=== PATIENT | male | born 1960 | race Caucasian/White ===

== ENCOUNTER 2016-09-22 21:49 | Inpatient (IN) | payer BC ==
[2016-09-22] MEDS ORDERED: Heparin for STEMI(*) 5,000 UNITS/ML 1 ML VIAL IV ONE (21:53)
[2016-09-22] MEDS ORDERED: Ticagrelor* 90 MG TAB PO ONE (22:00)
[2016-09-22] MEDS ORDERED: nitroGLYCERIN DRIP* 25,000 MCG in PREMIX* 0 ML IV ONE (22:02)
[2016-09-22] MEDS ORDERED: nitroGLYCERIN DRIP* 250 ML ONE ×2 (22:04→22:06)
[2016-09-22] MEDS ORDERED: Midazolam* 1 MG/ML 5 ML VIAL (5 MG) ONE (22:05)
[2016-09-22] MEDS ORDERED: fentaNYL* 50 MCG/ML 2 ML VIAL (100 MCG VIAL) ONE (22:05)
[2016-09-22 22:06] LABS: Hematocrit 45 % (42-52); Hemoglobin 15.1 g/dl (14.0-18.0); Mean Corpuscular HGB Conc 34 g/dl (31-36); Mean Corpuscular Hemoglobin 31 pg (27-31); Mean Corpuscular Volume 93 fL (80-94); Mean Platelet Volume 8 um3 (7.4-10.4); Red Blood Count 4.83 10^6/ul (4.0-5.4); Red Cell Distribution Width 13 % (10.5-15)
[2016-09-22] MEDS ORDERED: Lidocaine 1% INJ* 10 MG/ML 30 ML SDV ONE (22:06)
[2016-09-22] MEDS ORDERED: Iohexol 350 (CONTRAST) 200 ML MDV IV ONE (22:06)
[2016-09-22] MEDS ORDERED: Heparin(*) 1000 UNIT/ML 10 ML VIAL CATH LAB IV ONE (22:06)
[2016-09-22] MEDS ORDERED: VERAPAMIL 2.5 MG/ML 4 ML VIAL ONE (22:06)
[2016-09-22] MEDS ORDERED: Heparin 2 UNITS/ML IVPREMIX* 3,000 ML IV ONE (22:06)
[2016-09-22 22:20] LABS: Albumin 4.3 g/dL (3.2-5.2); BUN/Creatinine Ratio 8.3 (8-20); Calcium 9.2 mg/dL (8.6-10.3); EGFR African American 72.2 (>60); EGFR Non-African American 56.1 (>60); Globulin 3.7 g/dL (2-4); Potassium 3.8 mmol/L (3.5-5.0); Total Bilirubin 0.6 mg/dL (0.2-1.0)
[2016-09-22] MEDS ORDERED: Iodixanol* (CONTRAST) 320 MG/ML 100 ML SDV ONE ×2 (22:25→23:14)
--- NOTE | 2016-09-22 22:25 | RAD ---
INDICATION: Chest pain COMPARISON: September 02, 2016 TECHNIQUE: An AP portable view obtained at 2200 hours is submitted. FINDINGS: Bones/Soft Tissues: There are no acute bony findings. Cardiomediastinal: The cardiomediastinal silhouette is normal. Lungs: There are no infiltrates. Pleura: There are no pleural effusions. Other: None IMPRESSION: NO ACTIVE DISEASE.
[2016-09-22 22:31] LABS: Troponin I 2.51 ng/mL (<0.04)
[2016-09-22] MEDS ORDERED: NitroPRUSSide* 25 MG/ML 2 ML VIAL IVPB ONE (23:19)
[2016-09-22] MEDS ORDERED: Eptifibatide IV (Load dose)(*) 2 MG/ML 10 ml VIAL ONE (23:22)
[2016-09-22] MEDS ORDERED: Norepinephrine 16MCG/ML IVPRE* 4,000 MCG/250 ML BAG IV ONE (23:26)
[2016-09-23] MEDS ORDERED: Nitroglycerin TAB 0.4 MG* 0.4 MG TAB SL PRN (00:02)
[2016-09-23] MEDS ORDERED: Zolpidem TAB* 5 MG PO PRN (00:06)
[2016-09-23] MEDS ORDERED: NS 0.9% 1000 ML* 1,000 ML IV SCH (00:15)
[2016-09-23] MEDS: Captopril TAB* 12.5 MG PO SCH ×3 (02:23→14:56)
[2016-09-23] MEDS: Metoprolol Tartrate TAB* 25 MG PO SCH ×2 (02:24→08:15)
[2016-09-23 02:25] LABS: Troponin I > 85.00 ng/mL (<0.04)
[2016-09-23 02:36] LABS: Cholesterol 139 mg/dL; HDL Cholesterol 48.7 mg/dL; LDL Cholesterol 83 mg/dL; Triglycerides 37 mg/dL
[2016-09-23 02:57] LABS: Creatine Kinase 3409 U/L (10-223)
[2016-09-23 05:59] LABS: Hematocrit 40 % (42-52); Hemoglobin 13.6 g/dl (14.0-18.0); Mean Corpuscular HGB Conc 34 g/dl (31-36); Mean Corpuscular Hemoglobin 31 pg (27-31); Mean Corpuscular Volume 92 fL (80-94); Mean Platelet Volume 8 um3 (7.4-10.4); Red Blood Count 4.35 10^6/ul (4.0-5.4); Red Cell Distribution Width 13 % (10.5-15); White Blood Count 12.7 10^3/ul (3.5-10.8)
[2016-09-23 06:10] LABS: Anion Gap 7 mmol/L (2-11); BUN/Creatinine Ratio 9.7 (8-20); Blood Urea Nitrogen 11 mg/dL (6-24); CO2 Carbon Dioxide 25 mmol/L (22-32); Calcium 8.8 mg/dL (8.6-10.3); Chloride 103 mmol/L (101-111); EGFR African American 86.3 (>60); EGFR Non-African American 67.1 (>60); Glucose 134 mg/dL (70-100); Sodium 135 mmol/L (133-145)
[2016-09-23 06:14] LABS: Troponin I > 85.00 ng/mL (<0.04)
[2016-09-23 06:26] LABS: Creatine Kinase 4860 U/L (10-223)
[2016-09-23] MEDS: Acetaminophen TAB* 325 MG PO PRN ×2 (08:15→21:20)
[2016-09-23] MEDS: Nicotine PATCH 14 MG/24 HR* PATCH TRANSDERM SCH (08:33)
[2016-09-23] MEDS ORDERED: Ticagrelor* 90 MG TAB PO SCH (09:00)
[2016-09-23] MEDS ORDERED: Aspirin Low Dose CHEW TAB* 81 MG PO SCH (09:00)
[2016-09-23] MEDS ORDERED: Omeprazole CAP* 20 MG PO SCH (10:00)
[2016-09-23] MEDS ORDERED: fentaNYL* 50 MCG/ML 2 ML VIAL (100 MCG VIAL) ONE (10:44)
[2016-09-23] MEDS ORDERED: Ibuprofen TAB* 600 MG ONE (10:45)
[2016-09-23] MEDS ORDERED: Ibuprofen TAB* 600 MG PO PRN (10:48)
[2016-09-23] MEDS ORDERED: fentaNYL* 50 MCG/ML 2 ML VIAL (100 MCG VIAL) IV SLOW PU PRN (10:49)
[2016-09-23] MEDS ORDERED: Ibuprofen TAB* 600 MG PO ONE (10:50)
--- NOTE | 2016-09-23 11:03 | ECHO ---
Patient: TRISTIN VAUGHAN Rec#: [id number] : 1960 Date: 09/23/2016 Age: 55y Height: 162.56 cm / 64.0 in Weight: 68.95 kg / 152.0 lbs Sex: M BSA: 1.74 Room#: [facility]9 Admit Date#: 09/22/2016 Type: Inpatient Referring: Charbel Clay MD Reading: Burak Rodriguez MD Technology Solutions Architect: Odette Hanna Technology Solutions Architect: Candice Jenkins RDCS CC: Pascual Stinson MD Transthoracic Echocardiogram Indication: S/P PCI BP: 135/86 HR: 63 Rhythm: NSR Findings History: STEMI 09/22/16, PCI X2 LAD, Hep C, HTN. Technical Comments: The study quality is fair. Completed at 1035. Left Ventricle: The left ventricular chamber size is normal. Septal wall hypertrophy is observed. There is evidence of an ischemic cardiomyopathy. There are multiple regional wall motion abnormalities. There is moderately decreased left ventricular systolic function. The estimated ejection fraction is 30-35%. There is no consistent Doppler evidence of clinically significant diastolic dysfunction. The mid anteroseptal, mid inferior, mid inferoseptal, apical anterior, and apical lateral wall segments are hypokinetic (score 2). The apical septal, and apical inferior wall segments are akinetic (score 3). Overall wallmotion score index is 2.29 Left Atrium: The left atrial chamber size is normal. Right Ventricle: The right ventricular cavity size is normal. The right ventricular global systolic function is normal. Right Atrium: The right atrial cavity size is normal. Aortic Valve: The aortic valve is trileaflet. There is moderate thickening of the left coronary cusp. There is a trace of aortic regurgitation. There is no evidence of aortic stenosis. Mitral Valve: The mitral valve leaflets are moderately thickened. There is mild mitral regurgitation. There is no evidence of mitral stenosis. Tricuspid Valve: The tricuspid valve leaflets are normal. There is mild to moderate tricuspid regurgitation. There is evidence of moderate pulmonary hypertension. There is no tricuspid stenosis. Pulmonic Valve: The pulmonic valve appears normal. There is no evidence of pulmonic regurgitation. There is no pulmonic stenosis. Pericardium: There is no significant pericardial effusion. Aorta: There is no dilatation of the ascending aorta. There is no dilatation of the aortic arch. There is no dilation of the aortic root. Pulmonary Artery: The main pulmonary artery appears normal. Venous: The inferior vena cava appears normal in size. There is an approximate 50% respiratory change in the inferior vena cava dimension. Conclusions There is moderately decreased left ventricular systolic function. The estimated ejection fraction is 30-35%. There are multiple regional wall motion abnormalities. The right ventricular global systolic function is normal. There is moderate thickening of the left coronary cusp. There is a trace of aortic regurgitation. There is mild mitral regurgitation. There is mild to moderate tricuspid regurgitation. There is evidence of moderate pulmonary hypertension. There is no significant pericardial effusion. Measurements Name Value Normal Range RVIDd (AP) 2D 2.5 cm (0.9 - 2.6) RVDdMajor (2D) 2.7 cm (2.2 - 4.4) RAd ISD 4CH 3.8 cm (3.4 - 4.9) RA (A4C)W 3 cm (2.9 - 4.6) IVSd (2D) 1.1 cm (0.6 - 1) LVPWd (2D) 0.8 cm (0.6 - 1) LVIDd (2D) 4.1 cm (3.6 - 5.4) LVIDs (2D) 2.9 cm - LV FS (2D) 29 % (25 - 45) Aortic Annulus 1.9 cm (1.4 - 2.6) Ao root diameter (2D) 2.8 cm (2.1 - 3.5) Ascending Ao 2.8 cm (2.1 - 3.4) Aortic arch 2.1 cm (1.8 - 3.4) Descending Ao 0.8 cm - LA dimension (AP) 2D 3 cm (2.3 - 3.8) LAd ISD 4CH 4.7 cm (2.9 - 5.3) LA ISD 4CH W 3.9 cm (2.5 - 4.5) Name Value Normal Range LA ESV SP 4CH (A/L) 38 ml - LA ESV SP 2CH (A/L) 31 ml - LA ESV BP (A/L) 36 ml - LA ESV BP (A/L) index 21.09 ml/m2 - LA ESV SP 4CH (MOD) 35 ml - LA ESV SP 2CH (MOD) 32 ml - Name Value Normal Range MV E-wave Vmax 0.8 m/sec - MV deceleration time 228 msec - MV A-wave Vmax 0.4 m/sec - MV E:A ratio 1.9 ratio - LV septal e' Vmax 0.07 m/sec - LV lateral e' Vmax 0.09 m/sec - LV E:e' septal ratio 11.43 ratio - LV E:e' lateral ratio 8.89 ratio - Name Value Normal Range AV Vmax 1.5 m/sec - AV VTI 31 cm - AV peak gradient 9.42 mmHg - AV mean gradient 5.79 mmHg - LVOT Vmax 0.9 m/sec - LVOT VTI 18.8 cm - LVOT peak gradient 3.5 mmHg - LVOT mean gradient 2.1 mmHg - MONAE Vmax 0.81 m/sec - Name Value Normal Range TR Vmax 3.3 m/sec - TR peak gradient 45 mmHg - RAP 8 mmHg - RVSP 53 mmHg - IVC diameter 2.1 cm - Name Value Normal Range PV Vmax 0.7 m/sec - PV peak gradient 1.95 mmHg - Wallmotion BAS Not Seen BA Not Seen BAL Not Seen NITIN Not Seen BI Not Seen BIS Not Seen MAS Hypokinetic MA Not Seen MAL Not Seen MIL Not Seen ND Hypokinetic MIS Hypokinetic Akinetic AA Hypokinetic AL Hypokinetic AI Akinetic APEX Akinetic
[2016-09-23] MEDS: CMCS:Prasugrel (NF) 10 MG PO SCH (11:34)
[2016-09-23 12:59] LABS: Troponin I > 85.00 ng/mL (<0.04)
[2016-09-23 13:08] LABS: Creatine Kinase 3689 U/L (10-223)
[2016-09-23] MEDS ORDERED: Captopril TAB* 12.5 MG PO SCH ×2 (14:46→15:00)
[2016-09-23] MEDS: ALPRAZolam TAB* 0.5 MG PO PRN (15:38)
[2016-09-23] MEDS ORDERED: Albuterol HFA INHALER* 8 gm MDI INH PRN (16:06)
[2016-09-23] MEDS ORDERED: Heparin DRIP 25,000 UNITS(*) 0 UNITS/0 ML BAG ONE (16:55)
[2016-09-23] MEDS: Gabapentin CAP(*) 400 MG PO SCH ×2 (16:55→21:19)
[2016-09-23] MEDS: Morphine INJ* 4 MG/ML 1 ML SYRINGE IV PRN ×2 (16:55→21:20)
[2016-09-23] MEDS ORDERED: Atorvastatin* 80 MG TAB PO SCH (17:00)
[2016-09-23] MEDS ORDERED: Metoprolol Tartrate TAB* 50 mg ONE (17:03)
[2016-09-23] MEDS ORDERED: CMCS Prasugrel (NF) 10 MG PO ONE (17:21)
[2016-09-23] MEDS: Metoprolol Tartrate TAB* 50 mg PO SCH (17:32)
--- NOTE | 2016-09-23 17:56 | HP ---
HISTORY AND PHYSICAL: DATE OF ADMISSION: 09/22/16 PRIMARY: Dr. Stinson HISTORY OF PRESENT ILLNESS: A 55-year-old male presenting to the ER with acute anterolateral ST elevation infarct. He denies any previous cardiac history. At around 1600 hours, he started to have episodes of precordial chest discomfort, which tended to wax and wane until it became more persistent. He presented to the ER, where EKG at [address] elevation infarct with already a QS pattern in V1 through V4 and significant ST elevation in I, aVL, as well as V1 through V5. He received aspirin, Brilinta, heparin, IV nitroglycerin, and was transferred to the collaborative physician for emergent catheterization after review of the procedure and risks. He has no history of heart failure symptoms, palpitations, or syncope. He does have a history of acid reflux. He is a smoker. ALLERGIES: None to medications. FAMILY HISTORY: Positive for premature coronary artery disease in his father. SOCIAL HISTORY: He is a heavy smoker. REVIEW OF SYSTEMS: General: No weight loss, no fever. He drives for [employer], has a sedentary job. SHIRT TRIMMER: No history of TIA or CVA. GI: No history of peptic ulcer disease or bleeding. He does not take aspirin regularly, but does tolerate it. Pulmonary: He denies any history of COPD. Circulatory: No history of claudication. Endocrine: No known history of diabetes or thyroid disease. Remainder of 18-point review negative. PHYSICAL EXAMINATION VITAL SIGNS: When seen in the ER, he was in moderate distress with chest pain, BP 139/92, heart rate in the 60s. No ectopy. HEENT: Unremarkable without xanthelasma, scleral injection, jaundice. Cranial nerves grossly intact. NECK: JVP normal. Carotids normal without bruits. LUNGS: Clear to percussion and auscultation. CARDIAC: [place] normal, RV not palpable, normal heart sounds, no audible gallop, murmur, or rub. ABDOMEN: Soft, nontender. No bruit. Aorta and liver not palpable. EXTREMITIES: Femoral pulses 2+. No bruits. Radial pulses 2+. Pedal pulses 2+ . No cyanosis, clubbing, or edema. SKIN: Somewhat cool, but not diaphoretic. DIAGNOSTIC STUDIES/LAB DATA: EKG as above. BMP revealed a creatinine of 1.32 with a baseline of 1 in 2010, normal potassium, random blood sugar of 143. His first CPK is already elevated at 508 with MB of 41.5, troponin of 2.51. LDL 79. Chest x-ray was read as showing no acute disease. IMPRESSION: 1. Acute anterolateral ST elevation infarct with relatively late presentation at approximately 6+ hours, although his symptoms have been somewhat stuttering. He already has a QS pattern. He still has ST elevation and chest pain, underwent emergent catheterization. 2. Tobacco use. We will encourage him not to resume smoking. 3. History of gastroesophageal reflux disease, we will treat medically. 4. Hyperglycemia, we will check hemoglobin A1c. CC: Dr. Stinson; Dr. Olmedo [id number]/[facility] #: [id number] [facility]
[2016-09-23] MEDS: Aspirin EC TAB* 325 MG PO SCH (17:58)
[2016-09-23] MEDS ORDERED: Captopril TAB* 12.5 MG PO ONE (18:45)
[2016-09-23] MEDS ORDERED: Captopril TAB* 12.5 MG ONE (18:46)
[2016-09-23] MEDS ORDERED: Metoprolol Tartrate TAB* 50 mg PO SCH (21:00)
[2016-09-23] MEDS ORDERED: Captopril TAB* 25 MG PO SCH (21:00)
[2016-09-23] MEDS ORDERED: Aspirin EC TAB* 325 MG PO SCH (21:00)
[2016-09-23] MEDS: Colchicine* 0.6 MG TAB PO SCH (21:19)
[2016-09-23] MEDS: Nicotine Patch Removal NOTE PATCH OFF SCH (21:20)
--- NOTE | 2016-09-23 22:39 | HP ---
HOSPITAL MEDICINE HISTORY AND PHYSICAL: DATE OF ADMISSION: 09/22/16 PRIMARY CARE PHYSICIAN: Dr. Stinson. ATTENDING PHYSICIAN: Dr. Clay. CONSULTING PHYSICIAN: Paulette Martinez MD * (dictation provided by Alcon Helms NP). CHIEF COMPLAINT: Chest pain with ST elevation NE. REASON FOR CONSULTATION: Anxiety and pain management. HISTORY OF PRESENT ILLNESS: Mr. Cortez is a 55-year-old male with past medical history of GERD who presented to the hospital on 09/22/16 with concern for chest pain, found to have ST elevation NE. Mr. Cortez was taken to the OR and 2 stents were placed to his LAD. I refer you to the documentation by Dr. Olmedo for complete details. The patient had a transthoracic echocardiogram today which showed a depressed ejection fraction with multiple wall motion abnormalities and an EF of 30% to 35%. There is no evidence of pericardial effusion. Through the day today, Mr. Cortez has been very uncomfortable. Dr. Clay suspects that the patient has pericarditis after his significant NE. Mr. Cortez is sitting forward in the bed and breathing with respiratory rate in the 30s. He is not tachycardic. His blood pressure is stable. The patient states he has discomfort in his chest when he takes in a deep breath and therefore, is breathing very shallowly. He states he feels anxious in regards to his physical health, in regards to not being able to smoke, and about the fear of losing his job. He states that at baseline he does not feel that he has not any issues with anxiety or depression. PAST MEDICAL HISTORY: GERD. MEDICATIONS: As outpatient: 1. Ranitidine 150 mg p.o. b.i.d. 2. Omeprazole 20 mg p.o. daily. 3. Gabapentin 400 mg p.o. t.i.d. 4. Currently, the patient is on Tylenol p.r.n. 5. Atorvastatin 80 mg daily. 6. Captopril 12.5 mg p.o. daily. 7. Metoprolol 50 mg p.o. b.i.d. 8. Nitroglycerin via drip. 9. Prasugrel 10 mg p.o. daily. 10. Ambien p.r.n. 11. Fentanyl p.r.n. ALLERGIES: No known drug allergies. FAMILY HISTORY: The patient reports that his father had heart disease. His mother from a stroke. SOCIAL HISTORY: The patient is a long-term smoker, smoking over a pack per day. He denies alcohol use or drug use. REVIEW OF SYSTEMS: A 14-point review of systems was completed with Mr. Cortez and all those not mentioned above are negative. PHYSICAL EXAMINATION GENERAL: Mr. Cortez is sitting in the bed. He is sitting up straight, leaning forward slightly. He has a grimace and appears uncomfortable, but in no acute distress. VITAL SIGNS: Temperature 98.4, heart rate 88, respiratory rate 17, O2 saturation 98% on room air, blood pressure 156/91. LUNGS: Clear to auscultation bilaterally with no accessory muscle use and good aeration. HEART: S1, S2. No murmur, rub, or gallop is appreciated today. ABDOMEN: Soft, nontender with bowel sounds positive x4. EXTREMITIES: No cyanosis or edema. NEUROLOGIC: He is alert and oriented x3. He moves all extremities equally. There is no facial asymmetry or focal weakness. Extraocular movements are intact. SKIN: Intact. LABORATORY DATA AND DIAGNOSTIC STUDIES: On arrival, WBC 15.0, but his labs today show white blood cell count 12.7, hemoglobin 13.6, hematocrit 40, platelet count 216. INR 0.87. Sodium 135, potassium 4.0, chloride 103, serum bicarbonate 25, BUN 11, creatinine 1.13, glucose 134. Hemoglobin A1c 5.7. The patient's troponin has remained high up until today at noon greater than 85. His LDL is 83, his HDL 48.7. Chest x-ray shows no acute process. EKG on arrival shows ST elevation NE in the anterior leads. ASSESSMENT: Mr. Cortez is a 55-year-old male with past medical history of gastroesophageal reflux disease who presented to the hospital on 09/22/[address] elevation myocardial infarction. He was taken to the cardiac catheterization laboratory for 2 stents to his LAD. Post myocardial infarction , he has had signs of pericarditis which is being managed by Dr. Clay. Request has been made for consultation regarding management of anxiety and pain. Plans are as follows: 1. ST elevation myocardial infarction: Management per Dr. Clay. Medications as per above. 2. Pericarditis: The patient appears really quite uncomfortable on my assessment today. The patient has been given fentanyl with no improvement. Plan to provide morphine to see if that can help also slow his respiratory rate a bit and provide him more comfort. I am also adding Xanax for a component of anxiety related to his multiple issues as noted above. 3. Gastroesophageal reflux disease: The patient will have pantoprazole. 4. DVT prophylaxis: Per Dr. Clay. 5. Code status is full code. TIME SPENT: Approximately 60 minutes were spent in the consultation of this patient, more than half time spent with the patient at the bedside reviewing the events leading up to this hospitalization and during the hospitalization, performing the physical examination, and reviewing the [place] [id number]/[facility] #: [id number] MICHAEL
[2016-09-24] MEDS: Metoprolol Tartrate TAB* 50 mg PO SCH ×4 (00:34→20:12)
[2016-09-24] MEDS ORDERED: Omeprazole CAP* 20 MG PO SCH (06:00)
[2016-09-24] MEDS: CMCS: Pantoprazole TAB (NF) 40 MG TAB PO SCH (07:45)
[2016-09-24 08:52] LABS: Hematocrit 47 % (42-52); Hemoglobin 15.7 g/dl (14.0-18.0); Mean Corpuscular HGB Conc 34 g/dl (31-36); Mean Corpuscular Hemoglobin 32 pg (27-31); Mean Corpuscular Volume 94 fL (80-94); Mean Platelet Volume 9 um3 (7.4-10.4); Red Blood Count 4.98 10^6/ul (4.0-5.4); Red Cell Distribution Width 13 % (10.5-15); White Blood Count 13.7 10^3/ul (3.5-10.8)
[2016-09-24] MEDS ORDERED: Metoprolol Tartrate TAB* 50 mg PO SCH (09:00)
[2016-09-24 09:02] LABS: BUN/Creatinine Ratio 12.7 (8-20); Calcium 9.4 mg/dL (8.6-10.3); EGFR African American 82.1 (>60); EGFR Non-African American 63.9 (>60); Potassium 4.4 mmol/L (3.5-5.0)
[2016-09-24] MEDS: Nicotine PATCH 14 MG/24 HR* PATCH TRANSDERM SCH (09:45)
[2016-09-24] MEDS: CMCS:Prasugrel (NF) 10 MG PO SCH (09:46)
[2016-09-24] MEDS: Aspirin EC TAB* 325 MG PO SCH ×3 (09:46→17:35)
[2016-09-24] MEDS: Captopril TAB* 25 MG PO SCH ×3 (09:46→20:18)
[2016-09-24] MEDS: Colchicine* 0.6 MG TAB PO SCH ×2 (09:47→20:13)
[2016-09-24] MEDS: Gabapentin CAP(*) 400 MG PO SCH ×3 (10:00→20:12)
--- NOTE | 2016-09-24 14:44 | RAD ---
INDICATION: Congestion COMPARISON: September 22, 2016 TECHNIQUE: An AP portable view obtained at 1409 hours is submitted. FINDINGS: Bones/Soft Tissues: There are no acute bony findings. Cardiomediastinal: The cardiomediastinal silhouette is normal. Lungs: There is linear change left lung base most consistent with atelectasis, less likely a developing infiltrate. Pleura: There are no pleural effusions. Other: None IMPRESSION: SUSPECT LEFT LOWER LOBE ATELECTASIS. SUGGEST FOLLOW-UP INDICATED
[2016-09-24] MEDS: Atorvastatin* 40 MG TAB PO SCH (17:35)
--- NOTE | 2016-09-24 19:00 | PN ---
Subjective Date of Service: 09/24/16 Interval History: Pt is feeling ok. Still having a significant amount of pain in the center of his chest. No real SOB but he has been coughing and bringing up clear sputum. He can not take a deep breath and coughing hurts. Objective Active Medications: Acetaminophen (Tylenol Tab*) 650 mg PO Q4H PRN PRN Reason: HEADACHE/PAIN Last Admin: 09/23/16 21:20 Dose: 650 mg Albuterol (Ventolin Hfa Inhaler*) 2 puff INH Q4H PRN PRN Reason: SOB/WHEEZING Alprazolam (Xanax Tab*) 0.5 mg PO Q8H PRN PRN Reason: ANXIETY Last Admin: 09/23/16 15:38 Dose: 0.5 mg Aspirin (Ecotrin Ec Tab*) 650 mg PO TID WITH MEALS [facility] Last Admin: 09/24/16 17:35 Dose: 650 mg Atorvastatin Calcium (Lipitor*) 40 mg PO 1700 [facility] Last Admin: 09/24/16 17:35 Dose: 40 mg Captopril (Capoten Tab*) 12.5 mg PO 0900,1400,2100 [facility] Last Admin: 09/24/16 14:36 Dose: 12.5 mg Colchicine (Colcrys*) 0.6 mg PO BID [facility] Last Admin: 09/24/16 09:47 Dose: 0.6 mg Fentanyl Citrate (Fentanyl*) 25 mcg IV SLOW PU Q4H PRN PRN Reason: PAIN Gabapentin (Neurontin Cap(*)) 400 mg PO TID [facility] Last Admin: 09/24/16 14:37 Dose: 400 mg Metoprolol Tartrate (Lopressor Tab*) 50 mg PO 1720,2300 [facility] Last Admin: 09/24/16 17:35 Dose: 50 mg Metoprolol Tartrate (Lopressor Tab*) 50 mg PO BID [facility] Last Admin: 09/24/16 09:47 Dose: 50 mg Morphine Sulfate (Morphine Inj (Syringe)*) 4 mg IV Q4H PRN PRN Reason: PAIN Last Admin: 09/23/16 21:20 Dose: 4 mg Nicotine (Nicotine Patch 14 Mg/24 Hr*) 1 patch TRANSDERM Q24H [facility] Last Admin: 09/24/16 09:45 Dose: 1 patch Nitroglycerin (Nitroglycerin Tab 0.4 Mg*) 0.4 mg SL Q5M PRN PRN Reason: ANGINA Pantoprazole Sodium (Protonix Tab (Nf)) 40 mg PO DAILY@0730 [facility] Last Admin: 09/24/16 07:45 Dose: 40 mg Pharmacy Profile Note (Nicotine Patch Removal Note*) 1 note PATCH OFF 2100 [facility] Last Admin: 09/23/16 21:20 Dose: 1 note Prasugrel (Effient (Nf)) 10 mg PO DAILY [facility] Last Admin: 09/24/16 09:46 Dose: 10 mg Zolpidem Tartrate (Ambien Tab*) 5 mg PO BEDTIME PRN PRN Reason: SLEEP Vital Signs 09/23/16 09/23/16 09/23/16 19:00 19:03 19:30 Temperature Pulse Rate 83 81 75 Respiratory 37 30 27 Rate Blood Pressure 150/103 140/93 (mmHg) O2 Sat by Pulse 96 98 99 Oximetry 09/23/16 09/23/16 09/23/16 20:00 20:30 21:00 Temperature 98.7 F Pulse Rate 73 75 85 Respiratory 25 25 29 Rate Blood Pressure 134/85 129/85 (mmHg) O2 Sat by Pulse 97 97 97 Oximetry 09/23/16 09/23/16 09/23/16 21:20 21:30 22:00 Temperature Pulse Rate 81 77 Respiratory 45 28 24 Rate Blood Pressure 134/91 116/78 (mmHg) O2 Sat by Pulse 96 95 Oximetry 09/23/16 09/23/16 09/23/16 22:30 23:00 23:18 Temperature Pulse Rate 76 77 79 Respiratory 23 23 24 Rate Blood Pressure 105/74 112/73 (mmHg) O2 Sat by Pulse 95 95 96 Oximetry 09/23/16 09/24/16 09/24/16 23:30 00:00 00:03 Temperature 97.9 F Pulse Rate 77 74 77 Respiratory 24 22 23 Rate Blood Pressure 100/74 114/72 (mmHg) O2 Sat by Pulse 95 96 95 Oximetry 09/24/16 09/24/16 09/24/16 00:30 01:00 01:30 Temperature Pulse Rate 74 77 74 Respiratory 23 22 22 Rate Blood Pressure 107/66 100/69 101/65 (mmHg) O2 Sat by Pulse 96 95 95 Oximetry 09/24/16 09/24/16 09/24/16 02:00 02:30 03:00 Temperature Pulse Rate 73 73 74 Respiratory 22 22 22 Rate Blood Pressure 95/69 102/67 105/74 (mmHg) O2 Sat by Pulse 96 95 95 Oximetry 09/24/16 09/24/16 09/24/16 03:30 04:00 04:30 Temperature 98.3 F Pulse Rate 75 75 77 Respiratory 22 23 23 Rate Blood Pressure 99/73 108/74 107/74 (mmHg) O2 Sat by Pulse 97 96 95 Oximetry 09/24/16 09/24/16 09/24/16 05:00 05:30 06:00 Temperature Pulse Rate 78 78 76 Respiratory 23 22 22 Rate Blood Pressure 113/78 113/72 107/71 (mmHg) O2 Sat by Pulse 95 96 96 Oximetry 09/24/16 09/24/16 09/24/16 06:30 07:00 07:30 Temperature Pulse Rate 79 82 80 Respiratory 25 28 21 Rate Blood Pressure 112/73 101/68 108/82 (mmHg) O2 Sat by Pulse 96 96 97 Oximetry 09/24/16 09/24/16 09/24/16 07:42 08:00 08:30 Temperature 98.0 F Pulse Rate 89 99 Respiratory 24 30 Rate Blood Pressure 93/50 (mmHg) O2 Sat by Pulse 93 93 Oximetry 09/24/16 09/24/16 09/24/16 09:00 09:30 10:00 Temperature Pulse Rate 48 84 87 Respiratory 27 35 29 Rate Blood Pressure 82/55 107/73 103/62 (mmHg) O2 Sat by Pulse 91 97 99 Oximetry 09/24/16 09/24/16 09/24/16 10:30 11:00 11:30 Temperature Pulse Rate 77 69 68 Respiratory 26 23 27 Rate Blood Pressure 90/60 85/53 86/58 (mmHg) O2 Sat by Pulse 96 95 98 Oximetry 09/24/16 09/24/16 09/24/16 11:59 12:00 12:30 Temperature 98.6 F Pulse Rate 68 71 Respiratory 28 32 Rate Blood Pressure 87/61 91/67 (mmHg) O2 Sat by Pulse 97 98 Oximetry 09/24/16 09/24/16 09/24/16 13:00 13:30 13:50 Temperature Pulse Rate 82 81 85 Respiratory 25 31 37 Rate Blood Pressure 102/65 84/54 113/66 (mmHg) O2 Sat by Pulse 96 97 91 Oximetry 02/09/24/16 09/24/16 14:00 14:30 15:00 Temperature Pulse Rate 85 89 84 Respiratory 31 26 43 Rate Blood Pressure 105/65 106/73 101/60 (mmHg) O2 Sat by Pulse 97 96 96 Oximetry 09/24/16 09/24/16 09/24/16 15:30 16:00 16:30 Temperature Pulse Rate 85 83 83 Respiratory 33 20 41 Rate Blood Pressure 95/68 95/65 95/65 (mmHg) O2 Sat by Pulse 95 95 96 Oximetry 09/24/16 09/24/16 09/24/16 17:00 17:30 18:00 Temperature Pulse Rate 84 86 88 Respiratory 24 32 33 Rate Blood Pressure 98/74 112/72 114/72 (mmHg) O2 Sat by Pulse 96 97 95 Oximetry Oxygen Devices in Use Now: None Appearance: Middle aged male sitting up in bed, NAD Eyes: No Scleral Icterus Ears/Nose/Mouth/Throat: Mucous Membranes Moist Respiratory: Symmetrical Chest Expansion and Respiratory Effort, Clear to Auscultation - limited effort due to chest pain Cardiovascular: RRR, No Edema, - - + slight rub Abdominal: NL Sounds; No Tenderness; No Distention Extremities: No Clubbing, Cyanosis Skin: No Rash or Ulcers, No Nodules or Sclerosis Neurological: Alert and Oriented x 3 Result Diagrams: 09/24/16 08:00 09/24/16 08:00 Microbiology and Other Data: Microbiology 09/23/16 00:51 Nasal Screen MRSA (PCR)([facility]) - Final Nasal Mrsa Positive Assess/Plan/Problems-Billing Mr Cortez is a 55 yo M who has a h/o GERD and tobacco abuse presented to the ER with c/o CP and was found to have an acute STEMI. - Patient Problems (1) STEMI (ST elevation myocardial infarction) Current Visit: Yes Status: Acute Code(s): I21.3 - ST ELEVATION (STEMI) MYOCARDIAL INFARCTION OF [place] SITE SNOMED Code(s): 184367669 Comment: Post cardiac catheterization managment per Dr. Clay. Continue ASA , lipitor, metoprolol, captopril, prasugrel. 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 Clay-continue colchicine and ASA. Add CRP to labs drawn this AM. (3) Atelectasis of left lung Current Visit: Yes Status: Acute Code(s): J98.11 - ATELECTASIS SNOMED Code (s): 46810515 Comment: Start incentive spirometry. I explained the importance of this with the patient. Additionally we talked about aggressive pulmonary toilet (up to chair, walking, deep breathing, coughing). He will need to try to work through the discomfort in his chest. No clear signs of pneumonia at this time-I suspect his elevated WBC count is related to Zachery's syndrome and his acute SC. (4) GERD (gastroesophageal reflux disease) Current Visit: Yes Status: Acute Code(s): K21.9 - GASTRO-ESOPHAGEAL REFLUX DISEASE WITHOUT ESOPHAGITIS SNOMED Code(s): 000880723 Comment: Continue protonix. (5) Tobacco abuse Current Visit: Yes Status: Acute Code(s): Z72.0 - TOBACCO USE SNOMED Code( s): 178645126 Comment: Continue nicotine replacement therapy. Encourage smoking cessation. (6) DVT prophylaxis Current Visit: Yes Status: Acute Code(s): UVR0749 - SNOMED Code(s): 992400602 Comment: ambulation-if pt remains hospitalized beyond tomorrow will discuss with Dr. Clay about starting SQ heparin (7) Full code status Current Visit: Yes Status: Acute Code(s): Z78.9 - OTHER SPECIFIED HEALTH STATUS SNOMED Code(s): 165552488
[2016-09-24 19:36] LABS: C Reactive Protein 135.6 mg/L (< 5.00)
[2016-09-24] MEDS: Acetaminophen TAB* 325 MG PO PRN (20:13)
[2016-09-24] MEDS: Nicotine Patch Removal NOTE PATCH OFF SCH (20:18)
--- NOTE | 2016-09-24 20:56 | ED ---
Maday Martins Alok, scribed for Julio César Fernandez MD on 09/22/16 at 2203 . HPI Chest Pain - HPI Summary HPI Summary: 55 y/o male presents to the ED via ambulance for CP. CP beginning a approximately 1700 is described as a soreness initially thought to be anxiety provoked. When symptoms persisited, this prompted pt to call for ambulance. Pt given Aspirin and NTG en route which alleviated symptoms. Pt also notes mild SOB and has a PMHx of GERD, HTN, and HLD. STEMI was called at 2135 by EMS. - History of Current Complaint Chief Complaint: EDChestPainROMI Hx Obtained From: Patient Onset/Duration: Started Hours Ago, Atraumatic, Still Present Timing: Constant Initial Severity: Moderate Current Severity: Moderate Chest Pain Location: Mid Sternal Chest Pain Radiates: No Character: Other: - Soreness "Like a punch" Aggravating Factor(s): Nothing Alleviating Factor(s): Nothing Associated Signs and Symptoms: Positive: Chest Pain, Shortness of Breath. Negative: Fever - Allergy/Home Medications Allergies/Adverse Reactions: Allergies Allergy/AdvReac Type Severity Reaction Status Date / Time No Known Allergies Allergy Verified 12/13/13 12:27 Home Medications: Home Medications Omeprazole CAP* [Prilosec CAP* 20 MG] 20 mg PO DAILY 09/22/16 [History Confirmed 09/22/16] Ranitidine HCl 150 mg PO BID 09/22/16 [History Confirmed 09/22/16] PMH/Surg Hx/FS Hx/Imm Hx Endocrine/Hematology History: Denies: Hx Diabetes, Hx Thyroid Disease Cardiovascular History: Reports: Hx Hypertension Respiratory History: Reports: Hx Chronic Obstructive Pulmonary Disease (COPD) - POSSIBLE Denies: Hx Asthma GI History: Denies: Hx Ulcer - Surgical History Surgery Procedure, Year, and Place: GALL BLADDER REMOVAL, JUL 2013 Infectious Disease History: Reports: Hx Hepatitis - c Denies: Hx Human Immunodeficiency Virus (HIV) - Family History Known Family History: Positive: Other - NO FAM HX CLOTS, Mother Stroke, Brother cirrhosis - Social History Occupation: Unemployed Lives: With Family - Daughter Alcohol Use: Rare Substance Use Type: Reports: None Hx Tobacco Use: Yes Smoking Status (MU): Heavy Every Day Tobacco Smoker Type: Cigarettes Amount Used/How Often: 1.5 PPD Have You Smoked in the Last Year: Yes Review of Systems Negative: Fever Positive: Chest Pain Positive: Shortness Of Breath All Other Systems Reviewed And Are Negative: Yes Physical Exam Triage Information Reviewed: Yes Vital Signs On Initial Exam: Initial Vitals BP 154/96 09/22/16 21:54 Vital Signs Reviewed: Yes Appearance: Positive: Well-Appearing, No Pain Distress Skin: Positive: Warm, Skin Color Reflects Adequate Perfusion, Diaphoretic Head/Face: Positive: Normal Head/Face Inspection Eyes: Positive: Normal ENT: Positive: Normal ENT inspection Neck: Positive: Supple, Nontender Respiratory/Lung Sounds: Positive: Clear to Auscultation, Breath Sounds Present Cardiovascular: Positive: RRR Abdomen Description: Positive: Nontender, Soft Bowel Sounds: Positive: Present Musculoskeletal: Positive: Normal Neurological: Positive: Normal Psychiatric: Positive: Normal, Affect/Mood Appropriate Diagnostics - Vital Signs Vital Signs Temp Pulse Resp BP Pulse Ox 09/22/16 22:09 69 19 100 09/22/16 22:08 161/92 09/22/16 22:00 67 22 99 09/22/16 21:55 98.9 F 78 15 154/96 98 09/22/16 21:54 154/96 - Laboratory Lab Results: Lab Results 09/22/16 09/22/16 09/22/16 Range/Units 22:00 22:00 22:00 WBC 15.0 H (3.5-10.8) 10^3/ul RBC 4.83 (4.0-5.4) 10^6/ul Hgb 15.1 (14.0-18.0) g/dl Hct 45 (42-52) % MCV 93 (80-94) fL MCH 31 (27-31) pg MCHC 34 (31-36) g/dl RDW 13 (10.5-15) % Plt Count 232 (150-450) 10^3/ul MPV 8 (7.4-10.4) um3 Neut % (Auto) 87.7 H (38-83) % Lymph % (Auto) 8.8 L (25-47) % [place] % (Auto) 3.1 (1-9) % Eos % (Auto) 0 (0-6) % Baso % (Auto) 0.4 (0-2) % Absolute Neuts (auto) 13.1 H (1.5-7.7) 10^3/ul Absolute Lymphs (auto) 1.3 (1.0-4.8) 10^3/ul Absolute Monos (auto) 0.5 (0-0.8) 10^3/ul Absolute Eos (auto) 0 (0-0.6) 10^3/ul Absolute Basos (auto) 0.1 (0-0.2) 10^3/ul Absolute Nucleated RBC 0 10^3/ul Nucleated RBC % 0 INR (Anticoag Therapy) 0.87 L (0.89-1.11) APTT 29.0 (26.0-36.3) seconds Sodium 133 (133-145) mmol/L Potassium 3.8 (3.5-5.0) mmol/L Chloride 101 (101-111) mmol/L Carbon Dioxide 25 (22-32) mmol/L Anion Gap 7 (2-11) mmol/L BUN 11 (6-24) mg/dL Creatinine 1.32 H (0.67-1.17) mg/dL Est GFR ( Amer) 72.2 (>60) Est GFR (Non-Af Amer) 56.1 (>60) BUN/Creatinine Ratio 8.3 (8-20) Glucose 143 H (70-100) mg/dL Lactic Acid (0.5-2.0) mmol/L Calcium 9.2 (8.6-10.3) mg/dL Total Bilirubin 0.60 (0.2-1.0) mg/dL AST 38 (13-39) U/L ALT 18 (7-52) U/L Alkaline Phosphatase 61 (34-104) U/L Total Creatine Kinase 508 H (10-223) U/L CK-MB (CK-2) 41.5 H (0.6-6.3) ng/mL Troponin I 2.51 H* (<0.04) ng/mL B-Natriuretic Peptide ( - 100) pg/mL Total Protein 8.0 (6.4-8.9) g/dL Albumin 4.3 (3.2-5.2) g/dL Globulin 3.7 (2-4) g/dL Albumin/Globulin Ratio 1.2 (1-3) LDL Cholesterol Direct 79 mg/dL 09/22/16 09/22/16 Range/Units 22:00 22:00 WBC (3.5-10.8) 10^3/ul RBC (4.0-5.4) 10^6/ul Hgb (14.0-18.0) g/dl Hct (42-52) % MCV (80-94) fL MCH (27-31) pg MCHC (31-36) g/dl RDW (10.5-15) % Plt Count (150-450) 10^3/ul MPV (7.4-10.4) um3 Neut % (Auto) (38-83) % Lymph % (Auto) (25-47) % [place] % (Auto) (1-9) % Eos % (Auto) (0-6) % Baso % (Auto) (0-2) % Absolute Neuts (auto) (1.5-7.7) 10^3/ul Absolute Lymphs (auto) (1.0-4.8) 10^3/ul Absolute Monos (auto) (0-0.8) 10^3/ul Absolute Eos (auto) (0-0.6) 10^3/ul Absolute Basos (auto) (0-0.2) 10^3/ul Absolute Nucleated RBC 10^3/ul Nucleated RBC % INR (Anticoag Therapy) (0.89-1.11) APTT (26.0-36.3) seconds Sodium (133-145) mmol/L Potassium (3.5-5.0) mmol/L Chloride (101-111) mmol/L Carbon Dioxide (22-32) mmol/L Anion Gap (2-11) mmol/L BUN (6-24) mg/dL Creatinine (0.67-1.17) mg/dL Est GFR ( Amer) (>60) Est GFR (Non-Af Amer) (>60) BUN/Creatinine Ratio (8-20) Glucose (70-100) mg/dL Lactic Acid 1.6 (0.5-2.0) mmol/L Calcium (8.6-10.3) mg/dL Total Bilirubin (0.2-1.0) mg/dL AST (13-39) U/L ALT (7-52) U/L Alkaline Phosphatase (34-104) U/L Total Creatine Kinase (10-223) U/L CK-MB (CK-2) (0.6-6.3) ng/mL Troponin I (<0.04) ng/mL B-Natriuretic Peptide 37 ( - 100) pg/mL Total Protein (6.4-8.9) g/dL Albumin (3.2-5.2) g/dL Globulin (2-4) g/dL Albumin/Globulin Ratio (1-3) LDL Cholesterol Direct mg/dL Result Diagrams: 09/24/16 08:00 09/24/16 08:00 Lab Statement: Any lab studies that have been ordered have been reviewed, and results considered in the medical decision making process. 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 Olmedo (Interventionalist) @ 22:10 - Dr. Olmedo was paged - Critical Care Time Critical Care Time: 30-74 min Discharge - Discharge Plan Condition: Stable Disposition: ADMITTED TO [facility] The documentation as recorded by the Maday keys Alok accurately reflects the service I personally performed and the decisions made by Jim coyle Richard L, MD.
[2016-09-24] MEDS: Morphine INJ* 4 MG/ML 1 ML SYRINGE IV PRN (21:02)
--- NOTE | 2016-09-25 04:23 | CATH ---
STENT REPORT: DATE OF PROCEDURE: 09/22/16 - ROOM #ICU-09 PRIMARY DOCTOR: Dr. Stinson. PROCEDURES: Right radial artery access with ultrasound guidance, abandoned due to small size with spasm and pain. Right common femoral artery access, 6- Greek. Bilateral obstructive coronary cineangiography, left heart catheterization, stent placement LAD 2.5 x 24 Synergy drug-eluting stent, distal overlapping 2.25 x 8 mm Synergy drug-eluting stent. Double bolus IC Integrilin, IC Nipride 1000 mcg. HISTORY: A 55-year-old male with anterolateral ST elevation with late presentation with RDQS pattern in the precordium, but persisting ST elevation and chest pain. PROCEDURE ACCESS: Right radial artery with ultrasound guidance. Sheath 6-F slender. Because of very small vessel size with some spasm and patient discomfort, radial access was abandoned. Right femoral artery was anesthetized and punctured with a single wall puncture, a 6-Greek sheath was placed. DIAGNOSTIC CATHETERS: 6 FR4, which was also used to measure LV pressure. 6 FL4. Guiding catheter LAD 6F VL 3.5. Wire 14 BMW. The LAD mid occlusion was dilated with a 2.5 x 12 mm balloon 6 atmospheres 15 seconds, mid LAD was then stented with a 2.5 x 24 Synergy drug-eluting stent 14 atmospheres 30 seconds. A more distal high-grade stenosis was apparent, was stented with a 2.25 x 8 Synergy drug-eluting stent 11 atmospheres 30 seconds. The first deployed stent was postdilated with a 2.5 x 20 noncompliant balloon to 16 and 18 atmospheres. The 2.5-mm balloon was then used to postdilate the overlap area 2.5 mm 12 atmospheres 30 seconds. He was given double bolus IC Integrilin because of a proximal thrombus, as well as IC Nipride 1000 mcg to augment perfusion. The 6 FR4 was used to measure LV pressure. MEDICATIONS: 1. Subcu lidocaine, right radial and right femoral. 2. Brilinta 180 mg. 3. Heparin 4000 units. 4. Aspirin 324 mg precath lab. 5. Continued IV nitro drip. 6. IV Versed. 7. IV fentanyl. 8. Nitroglycerin 300 mcg. 9. Verapamil 3 mg IA via radial sheath. 10. IC nitroglycerin 200 mcg. 11. Heparin 2000 units, 2000 units IV. 12. Nipride 1000 mcg total, left coronary IC. 13. Levophed 32 mcg IV x1 for BP support during Nipride infusion. 14. Double bolus Integrilin. HEMODYNAMICS: Initial BP 168/103, LV 152/21-32, with approximately 15 mm peak to peak systolic gradient on pull back. ANGIOGRAPHY: Right forearm: The radial artery is very small in caliber. Left Main: The left main is long, has no stenosis. LAD: The LAD is moderate, supplies a moderate first diagonal, which has proximal to below 70% stenosis, the LAD has heavy calcification. It is near occluded after the first septal with distal ANTELMO 2 flow. The distal LAD is very poorly filled, appears to be small and diffusely diseased. After placement of the first mid LAD stent and postdilatation with a noncompliant balloon, flow is improved, but there is an evident 75% to 80% stenosis beyond the end of the stent, the jailed small second diagonal has ostial 75% stenosis, it is too small for treatment. After placement of the second overlapping drug- eluting stent and postdilatation of the overlap flow in the end, IC Nipride and Integrilin, flow in the LAD is ANTELMO 3, there is some vascular blush. The distal LAD is very small, has diffuse luminal irregularity, but no significant focal stenosis. Circumflex: The circumflex is relatively small, not dominant, has a proximal 40 % stenosis. RCA: The RCA is large, dominant with a large PDA. The RCA continuation after the PDA has a focal short 40% to 50% stenosis, then supplies a moderate posterolateral after which the RCA continuation has a 60% to 70% stenosis in a vessel with reference diameter of less than 2 mm. RFA sheath entries in segment 2, there is no stenosis. CONCLUSION: 1. Three-vessel disease with nonobstructive circumflex stenosis, moderate RCA stenosis beyond the PDA and more severe distal small posterolateral branch stenosis too small for intervention. He had a culprit LAD occlusion with moderately severe stenosis of the first diagonal. 2. Elevated LVDP. 3. LV gram not performed due to reduced creatinine clearance. 4. Successful AngioSeal placement, right common femoral artery. 5. Unsuccessful right radial artery access due to small vessel size with spasm and patient discomfort. 6. Excellent angiographic result with drug-eluting stent placement, mid LAD. CC: Dr. Stinson; Rupa Olmedo MD* [id number]/[facility] #: [id number] MICHAEL
[2016-09-25] MEDS ORDERED: Aspirin EC TAB* 325 MG PO SCH ×2 (09:00→17:00)
[2016-09-25] MEDS: Colchicine* 0.6 MG TAB PO SCH ×2 (09:15→20:50)
[2016-09-25] MEDS: CMCS:Prasugrel (NF) 10 MG PO SCH (09:15)
[2016-09-25] MEDS: Gabapentin CAP(*) 400 MG PO SCH ×3 (09:16→20:50)
[2016-09-25] MEDS: Captopril TAB* 25 MG PO SCH ×3 (09:16→20:50)
[2016-09-25] MEDS: Metoprolol Tartrate TAB* 50 mg PO SCH ×2 (09:17→20:50)
[2016-09-25] MEDS: Nicotine PATCH 14 MG/24 HR* PATCH TRANSDERM SCH (09:17)
[2016-09-25] MEDS: Enoxaparin(*) 80 MG/0.8 ML SYR SUBCUT SCH ×2 (09:18→20:49)
[2016-09-25] MEDS: CMCS: Pantoprazole TAB (NF) 40 MG TAB PO SCH (09:20)
--- NOTE | 2016-09-25 10:46 | ECHO ---
Patient: TRISTIN VAUGHAN Rec#: [id number] : 1960 Date: 09/25/2016 Age: 55y Height: 163 cm / 64.2 in Weight: 70.9 kg / 156.3 lbs Sex: M BSA: 1.76 Room#: [facility] Admit Date#: 09/22/2016 Type: Inpatient Referring: Charbel Clay MD Reading: Shiela Yanez MD Senior Planner: Odette Hanna Senior Planner: Sophia Linares RN RDCS CC: Pascual Stinson MD Transthoracic Echocardiogram Indication: STEMI, S/P PCI BP: 87/64 HR: 63 Rhythm: NSR Findings History: STEMI 09/22/16, PCI x2 LAD, Hep C, HTN. This is a LIMITED echo to reassess LV systolic function, mitral regurgitation, and pericardial effusion. Technical Comments: The study is technically limited due to the patient's smoking history. Completed at 1030. Left Ventricle: There is a focal wall motion abnormality present.The apex is akinetic extending to the apical 1/2 of the septum and 1/3 of the lateral wall and anterior tolentino. "Smoke" Rouleaux formation noted in the apex and echo bright material, 0.92x0.99 noted in the apex of the LV in the 4 chamber view but not the 2 chamber view (consistent with focal clot). There is moderate to severely decreased left ventricular systolic function. The estimated ejection fraction is 35-40%. Right Ventricle: The right ventricular global systolic function is normal. Mitral Valve: The mitral valve leaflets are moderately thickened. There is trace to mild mitral regurgitation. There is no evidence of mitral stenosis. Pericardium: There is no significant pericardial effusion. Conclusions The left ventrical shows an apical UT: the apex is akinetic extending to the apical 1/2 of the septum and 1/3 of the lateral wall and anterior tolentino. "Smoke" Rouleaux formation noted in the apical portion of the ventrical indicating low flow. Echo bright material, 0.92x0.99 noted in the 4 chamber view but not the 2 chamber view (consistent with focal thrombus). The estimated ejection fraction is 35-40%. The right ventricular global systolic function is normal. There is trace to mild mitral regurgitation. Consider echo contrast to better deliniate the apex and probable thrombus. Compared with prior echo of 09/23/16, ventricular function is stable, Rouleax and apical clot newly described.
[2016-09-25 11:17] LABS: Hematocrit 45 % (42-52); Hemoglobin 15.2 g/dl (14.0-18.0); Mean Corpuscular HGB Conc 34 g/dl (31-36); Mean Corpuscular Hemoglobin 32 pg (27-31); Mean Corpuscular Volume 93 fL (80-94); Mean Platelet Volume 9 um3 (7.4-10.4); Red Blood Count 4.79 10^6/ul (4.0-5.4); Red Cell Distribution Width 13 % (10.5-15); White Blood Count 10.8 10^3/ul (3.5-10.8)
[2016-09-25 11:33] LABS: BUN/Creatinine Ratio 18.1 (8-20); Calcium 9.3 mg/dL (8.6-10.3); EGFR African American 83.8 (>60); EGFR Non-African American 65.1 (>60)
[2016-09-25] MEDS: Atorvastatin* 40 MG TAB PO SCH (17:19)
[2016-09-25] MEDS ORDERED: Warfarin TAB(*) 5 MG PO ONE (18:00)
--- NOTE | 2016-09-25 18:00 | PN ---
Subjective Date of Service: 09/25/16 Interval History: Pt is feeling much better today. Able to take a much deeper breath. No significant sputum. Objective Active Medications: Acetaminophen (Tylenol Tab*) 650 mg PO Q4H PRN PRN Reason: HEADACHE/PAIN Last Admin: 09/24/16 20:13 Dose: 650 mg Albuterol (Ventolin Hfa Inhaler*) 2 puff INH Q4H PRN PRN Reason: SOB/WHEEZING Alprazolam (Xanax Tab*) 0.5 mg PO Q8H PRN PRN Reason: ANXIETY Last Admin: 09/23/16 15:38 Dose: 0.5 mg Aspirin (Ecotrin Ec Tab*) 81 mg PO DAILY [facility] Atorvastatin Calcium (Lipitor*) 40 mg PO 1700 [facility] Last Admin: 09/25/16 17:19 Dose: 40 mg Captopril (Capoten Tab*) 12.5 mg PO 0900,1400,2100 [facility] Last Admin: 09/25/16 14:54 Dose: 12.5 mg Colchicine (Colcrys*) 0.6 mg PO BID [facility] Last Admin: 09/25/16 09:15 Dose: 0.6 mg Enoxaparin Sodium (Lovenox(*)) 70 mg SUBCUT Q12H [facility] Last Admin: 09/25/16 09:18 Dose: 70 mg Fentanyl Citrate (Fentanyl*) 25 mcg IV SLOW PU Q4H PRN PRN Reason: PAIN Gabapentin (Neurontin Cap(*)) 400 mg PO TID [facility] Last Admin: 09/25/16 14:54 Dose: 400 mg Metoprolol Tartrate (Lopressor Tab*) 50 mg PO BID [facility] Last Admin: 09/25/16 09:17 Dose: 50 mg Morphine Sulfate (Morphine Inj (Syringe)*) 4 mg IV Q4H PRN PRN Reason: PAIN Last Admin: 09/24/16 21:02 Dose: 4 mg Nicotine (Nicotine Patch 14 Mg/24 Hr*) 1 patch TRANSDERM Q24H [facility] Last Admin: 09/25/16 09:17 Dose: 1 patch Nitroglycerin (Nitroglycerin Tab 0.4 Mg*) 0.4 mg SL Q5M PRN PRN Reason: ANGINA Pantoprazole Sodium (Protonix Tab (Nf)) 40 mg PO DAILY@0730 [facility] Last Admin: 03/01/17 09:20 Dose: 40 mg Pharmacy Profile Note (Nicotine Patch Removal Note*) 1 note PATCH OFF 2100 [facility] Last Admin: 09/24/16 20:18 Dose: 1 note Pharmacy Profile Note (Coumadin Daily Reminder*) 1 note FOLLOW UP 1700 [facility] Prasugrel (Effient (Nf)) 10 mg PO DAILY [facility] Last Admin: 09/25/16 09:15 Dose: 10 mg Warfarin Sodium (Coumadin Tab(*)) 5 mg PO ONCE ONE Stop: 09/25/16 18:01 Last Admin: 09/25/16 17:19 Dose: 5 mg Zolpidem Tartrate (Ambien Tab*) 5 mg PO BEDTIME PRN PRN Reason: SLEEP Vital Signs 09/24/16 09/24/16 09/24/16 18:00 18:30 19:00 Temperature Pulse Rate 88 90 76 Respiratory 33 21 36 Rate Blood Pressure 114/72 131/76 116/74 (mmHg) O2 Sat by Pulse 95 97 96 Oximetry 09/24/16 09/24/16 09/24/16 19:30 19:39 20:00 Temperature 99.2 F Pulse Rate 79 80 Respiratory 38 35 Rate Blood Pressure 98/74 110/70 (mmHg) O2 Sat by Pulse 96 95 Oximetry 09/24/16 09/24/16 09/24/16 20:30 21:00 21:02 Temperature Pulse Rate 81 75 Respiratory 24 29 22 Rate Blood Pressure 109/72 107/72 (mmHg) O2 Sat by Pulse 95 94 Oximetry 09/24/16 09/24/16 09/24/16 21:15 21:30 22:00 Temperature Pulse Rate 72 Respiratory 20 20 27 Rate Blood Pressure 86/60 (mmHg) O2 Sat by Pulse 95 Oximetry 09/24/16 09/24/16 09/25/16 23:00 23:56 00:00 Temperature 97.9 F Pulse Rate 65 79 68 Respiratory 21 23 8 Rate Blood Pressure 96/67 101/67 (mmHg) O2 Sat by Pulse 94 97 94 Oximetry 09/25/16 09/25/16 09/25/16 01:00 02:00 03:00 Temperature Pulse Rate 64 67 64 Respiratory 21 18 13 Rate Blood Pressure 90/64 95/70 98/66 (mmHg) O2 Sat by Pulse 95 94 95 Oximetry 09/25/16 09/25/16 09/25/16 04:00 04:02 05:00 Temperature 97.7 F Pulse Rate 64 65 65 Respiratory 18 19 14 Rate Blood Pressure 99/64 91/64 (mmHg) O2 Sat by Pulse 93 93 94 Oximetry 09/25/16 09/25/16 09/25/16 06:00 07:00 08:00 Temperature 98.3 F Pulse Rate 65 70 68 Respiratory 14 23 24 Rate Blood Pressure 87/64 86/66 93/60 (mmHg) O2 Sat by Pulse 94 94 95 Oximetry 09/25/16 09/25/16 09/25/16 09:00 10:00 11:00 Temperature Pulse Rate 67 71 64 Respiratory 16 24 19 Rate Blood Pressure 95/65 90/61 102/79 (mmHg) O2 Sat by Pulse 96 94 95 Oximetry 09/25/16 09/25/16 09/25/16 12:00 13:00 14:00 Temperature 98.2 F Pulse Rate 61 65 74 Respiratory 24 27 24 Rate Blood Pressure 99/65 96/57 96/60 (mmHg) O2 Sat by Pulse 95 97 97 Oximetry 09/25/16 09/25/16 09/25/16 15:00 15:37 16:00 Temperature 99.0 F Pulse Rate 72 74 Respiratory 25 26 Rate Blood Pressure 92/61 85/55 (mmHg) O2 Sat by Pulse 97 96 Oximetry 09/25/16 16:53 Temperature Pulse Rate 76 Respiratory 21 Rate Blood Pressure (mmHg) O2 Sat by Pulse 96 Oximetry Oxygen Devices in Use Now: None Appearance: Middle aged male sitting up in bed, NAD Eyes: No Scleral Icterus Ears/Nose/Mouth/Throat: Mucous Membranes Moist Respiratory: Symmetrical Chest Expansion and Respiratory Effort, Clear to Auscultation - diminshed breath sounds at the bases Cardiovascular: NL Sounds; No Murmurs; No JVD, RRR, No Edema Abdominal: NL Sounds; No Tenderness; No Distention Extremities: No Clubbing, Cyanosis Skin: No Rash or Ulcers, No Nodules or Sclerosis Neurological: Alert and Oriented x 3 Result Diagrams: 09/25/16 10:50 09/25/16 10:50 Additional Lab and Data: Lab Results 09/22/16 09/22/16 09/22/16 Range/Units 22:00 22:00 22:00 WBC 15.0 H (3.5-10.8) 10^3/ul RBC 4.83 (4.0-5.4) 10^6/ul Hgb 15.1 (14.0-18.0) g/dl Hct 45 (42-52) % MCV 93 (80-94) fL MCH 31 (27-31) pg MCHC 34 (31-36) g/dl RDW 13 (10.5-15) % Plt Count 232 (150-450) 10^3/ul MPV 8 (7.4-10.4) um3 Neut % (Auto) 87.7 H (38-83) % Lymph % (Auto) 8.8 L (25-47) % [place] % (Auto) 3.1 (1-9) % Eos % (Auto) 0 (0-6) % Baso % (Auto) 0.4 (0-2) % Absolute Neuts (auto) 13.1 H (1.5-7.7) 10^3/ul Absolute Lymphs (auto) 1.3 (1.0-4.8) 10^3/ul Absolute Monos (auto) 0.5 (0-0.8) 10^3/ul Absolute Eos (auto) 0 (0-0.6) 10^3/ul Absolute Basos (auto) 0.1 (0-0.2) 10^3/ul Absolute Nucleated RBC 0 10^3/ul Nucleated RBC % 0 INR (Anticoag Therapy) 0.87 L (0.89-1.11) APTT 29.0 (26.0-36.3) seconds Sodium 133 (133-145) mmol/L Potassium 3.8 (3.5-5.0) mmol/L Chloride 101 (101-111) mmol/L Carbon Dioxide 25 (22-32) mmol/L Anion Gap 7 (2-11) mmol/L BUN 11 (6-24) mg/dL Creatinine 1.32 H (0.67-1.17) mg/dL Est GFR ( Amer) 72.2 (>60) Est GFR (Non-Af Amer) 56.1 (>60) BUN/Creatinine Ratio 8.3 (8-20) Glucose 143 H (70-100) mg/dL Lactic Acid (0.5-2.0) mmol/L Calcium 9.2 (8.6-10.3) mg/dL Total Bilirubin 0.60 (0.2-1.0) mg/dL AST 38 (13-39) U/L ALT 18 (7-52) U/L Alkaline Phosphatase 61 (34-104) U/L Total Creatine Kinase 508 H (10-223) U/L CK-MB (CK-2) 41.5 H (0.6-6.3) ng/mL Troponin I 2.51 H* (<0.04) ng/mL B-Natriuretic Peptide ( - 100) pg/mL Total Protein 8.0 (6.4-8.9) g/dL Albumin 4.3 (3.2-5.2) g/dL Globulin 3.7 (2-4) g/dL Albumin/Globulin Ratio 1.2 (1-3) LDL Cholesterol Direct 79 mg/dL 09/22/16 09/22/16 Range/Units 22:00 22:00 WBC (3.5-10.8) 10^3/ul RBC (4.0-5.4) 10^6/ul Hgb (14.0-18.0) g/dl Hct (42-52) % MCV (80-94) fL MCH (27-31) pg MCHC (31-36) g/dl RDW (10.5-15) % Plt Count (150-450) 10^3/ul MPV (7.4-10.4) um3 Neut % (Auto) (38-83) % Lymph % (Auto) (25-47) % [place] % (Auto) (1-9) % Eos % (Auto) (0-6) % Baso % (Auto) (0-2) % Absolute Neuts (auto) (1.5-7.7) 10^3/ul Absolute Lymphs (auto) (1.0-4.8) 10^3/ul Absolute Monos (auto) (0-0.8) 10^3/ul Absolute Eos (auto) (0-0.6) 10^3/ul Absolute Basos (auto) (0-0.2) 10^3/ul Absolute Nucleated RBC 10^3/ul Nucleated RBC % INR (Anticoag Therapy) (0.89-1.11) APTT (26.0-36.3) seconds Sodium (133-145) mmol/L Potassium (3.5-5.0) mmol/L Chloride (101-111) mmol/L Carbon Dioxide (22-32) mmol/L Anion Gap (2-11) mmol/L BUN (6-24) mg/dL Creatinine (0.67-1.17) mg/dL Est GFR ( Amer) (>60) Est GFR (Non-Af Amer) (>60) BUN/Creatinine Ratio (8-20) Glucose (70-100) mg/dL Lactic Acid 1.6 (0.5-2.0) mmol/L Calcium (8.6-10.3) mg/dL Total Bilirubin (0.2-1.0) mg/dL AST (13-39) U/L ALT (7-52) U/L Alkaline Phosphatase (34-104) U/L Total Creatine Kinase (10-223) U/L CK-MB (CK-2) (0.6-6.3) ng/mL Troponin I (<0.04) ng/mL B-Natriuretic Peptide 37 ( - 100) pg/mL Total Protein (6.4-8.9) g/dL Albumin (3.2-5.2) g/dL Globulin (2-4) g/dL Albumin/Globulin Ratio (1-3) LDL Cholesterol Direct mg/dL Microbiology and Other Data: Microbiology 09/23/16 00:51 Nasal Screen MRSA (PCR)([facility]) - Final Nasal Mrsa Positive Assess/Plan/Problems-Billing Mr Cortez is a 55 yo M who has a h/o GERD and tobacco abuse presented to the ER with c/o CP and was found to have an acute STEMI. - Patient Problems (1) STEMI (ST elevation myocardial infarction) Current Visit: Yes Status: Acute Code(s): I21.3 - ST ELEVATION (STEMI) MYOCARDIAL INFARCTION OF [facility] SITE SNOMED Code(s): 458169062 Comment: Post cardiac catheterization managment per Dr. Clay. Continue ASA , lipitor, metoprolol, captopril, prasugrel. 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 Clay-continue colchicine and ASA. Add CRP to labs drawn this AM. (3) LV (left ventricular) mural thrombus with acute NH Current Visit: Yes Status: Acute Code(s): I21.29 - STEMI INVOLVING OTH SITES SNOMED Code(s): 68076380 Comment: Lovenox bridge to coumadin. Management per Dr. Clay. (4) Atelectasis of left lung Current Visit: Yes Status: Acute Code(s): J98.11 - ATELECTASIS SNOMED Code (s): 08556672 Comment: Improved aeration of the bases though still diminished breath sounds. His ability to take a deep breath has dramatically improved. He has used the incentive spirometer. No need for Abx as there is no sign of pneumonia. (5) GERD (gastroesophageal reflux disease) Current Visit: Yes Status: Acute Code(s): K21.9 - GASTRO-ESOPHAGEAL REFLUX DISEASE WITHOUT ESOPHAGITIS SNOMED Code(s): 736591682 Comment: Continue protonix. (6) Tobacco abuse Current Visit: Yes Status: Acute Code(s): Z72.0 - TOBACCO USE SNOMED Code( s): 360812820 Comment: Continue nicotine replacement therapy. Encourage smoking cessation. (7) DVT prophylaxis Current Visit: Yes Status: Acute Code(s): KRX7995 - SNOMED Code(s): 756671018 Comment: lovenox (8) Full code status Current Visit: Yes Status: Acute Code(s): Z78.9 - OTHER SPECIFIED HEALTH STATUS SNOMED Code(s): 095045615 Status and Disposition: I will sign off but please re-consult for any questions.
[2016-09-25] MEDS: Nicotine Patch Removal NOTE PATCH OFF SCH (20:57)
[2016-09-26 05:49] LABS: Hematocrit 44 % (42-52); Hemoglobin 14.8 g/dl (14.0-18.0); Mean Corpuscular HGB Conc 34 g/dl (31-36); Mean Corpuscular Hemoglobin 32 pg (27-31); Mean Corpuscular Volume 94 fL (80-94); Mean Platelet Volume 9 um3 (7.4-10.4); Red Blood Count 4.67 10^6/ul (4.0-5.4); Red Cell Distribution Width 13 % (10.5-15); White Blood Count 9.8 10^3/ul (3.5-10.8)
[2016-09-26 06:05] LABS: BUN/Creatinine Ratio 16.7 (8-20); EGFR African American 76.1 (>60); EGFR Non-African American 59.2 (>60); Potassium 4.3 mmol/L (3.5-5.0)
[2016-09-26] MEDS: Metoprolol Tartrate TAB* 50 mg PO SCH ×2 (08:45→21:33)
[2016-09-26] MEDS: Captopril TAB* 25 MG PO SCH ×3 (08:46→21:31)
[2016-09-26] MEDS: Nicotine PATCH 14 MG/24 HR* PATCH TRANSDERM SCH (08:47)
[2016-09-26] MEDS: CMCS: Pantoprazole TAB (NF) 40 MG TAB PO SCH (08:48)
[2016-09-26] MEDS: Colchicine* 0.6 MG TAB PO SCH ×2 (08:48→21:32)
[2016-09-26] MEDS: Gabapentin CAP(*) 400 MG PO SCH ×3 (08:48→21:32)
[2016-09-26] MEDS: Enoxaparin(*) 80 MG/0.8 ML SYR SUBCUT SCH ×2 (08:49→21:30)
[2016-09-26] MEDS ORDERED: Clopidogrel TAB* 300 MG PO ONE (09:00)
[2016-09-26] MEDS ORDERED: Aspirin EC TAB* 325 MG PO SCH (09:00)
[2016-09-26] MEDS ORDERED: Aspirin Low Dose CHEW TAB* 81 MG PO SCH (12:00)
[2016-09-26] MEDS: Aspirin EC TAB* 325 MG PO SCH ×2 (15:22→19:16)
[2016-09-26] MEDS: Atorvastatin* 40 MG TAB PO SCH (16:44)
[2016-09-26] MEDS ORDERED: Warfarin TAB(*) 5 MG PO ONE (17:00)
[2016-09-26] MEDS: Morphine INJ* 4 MG/ML 1 ML SYRINGE IV PRN ×2 (18:52→23:17)
--- NOTE | 2016-09-26 19:12 | PN ---
Subjective Date of Service: 09/26/16 Interval History: I was asked to see the patient again by Dr. Clay for L sided chest pain. The patient describes the pain as being constant while breathing. Moving his arm did not make it feel better. He noticed his pain was improved when I had him sit forward to listen to his lungs. Objective Active Medications: Acetaminophen (Tylenol Tab*) 650 mg PO Q4H PRN PRN Reason: HEADACHE/PAIN Last Admin: 09/24/16 20:13 Dose: 650 mg Albuterol (Ventolin Hfa Inhaler*) 2 puff INH Q4H PRN PRN Reason: SOB/WHEEZING Alprazolam (Xanax Tab*) 0.5 mg PO Q8H PRN PRN Reason: ANXIETY Last Admin: 09/23/16 15:38 Dose: 0.5 mg Aspirin (Aspirin Low Dose Tab*) 81 mg PO DAILY [facility] Last Admin: 09/26/16 13:38 Dose: Not Given Atorvastatin Calcium (Lipitor*) 40 mg PO 1700 [facility] Last Admin: 09/26/16 16:44 Dose: 40 mg Captopril (Capoten Tab*) 12.5 mg PO 0900,1400,2100 [facility] Last Admin: 09/26/16 14:03 Dose: 12.5 mg Clopidogrel Bisulfate (Plavix Tab*) 75 mg PO DAILY [facility] Colchicine (Colcrys*) 0.6 mg PO BID [facility] Last Admin: 09/26/16 08:48 Dose: 0.6 mg Enoxaparin Sodium (Lovenox(*)) 70 mg SUBCUT Q12H [facility] Last Admin: 09/26/16 08:49 Dose: 70 mg Fentanyl Citrate (Fentanyl*) 25 mcg IV SLOW PU Q4H PRN PRN Reason: PAIN Gabapentin (Neurontin Cap(*)) 400 mg PO TID [facility] Last Admin: 09/26/16 15:54 Dose: 400 mg Metoprolol Tartrate (Lopressor Tab*) 50 mg PO BID [facility] Last Admin: 09/26/16 08:45 Dose: 50 mg Morphine Sulfate (Morphine Inj (Syringe)*) 4 mg IV Q4H PRN PRN Reason: PAIN Last Admin: 09/26/16 18:52 Dose: 4 mg Nicotine (Nicotine Patch 14 Mg/24 Hr*) 1 patch TRANSDERM Q24H [facility] Last Admin: 09/26/16 08:47 Dose: 1 patch Nitroglycerin (Nitroglycerin Tab 0.4 Mg*) 0.4 mg SL Q5M PRN PRN Reason: ANGINA Pantoprazole Sodium (Protonix Tab (Nf)) 40 mg PO DAILY@0730 [facility] Last Admin: 09/26/16 08:48 Dose: 40 mg Pharmacy Profile Note (Nicotine Patch Removal Note*) 1 note PATCH OFF 2100 [facility] Last Admin: 09/25/16 20:57 Dose: 1 note Pharmacy Profile Note (Coumadin Daily Reminder*) 1 note FOLLOW UP 1700 [facility] Last Admin: 09/26/16 16:45 Dose: 1 note Zolpidem Tartrate (Ambien Tab*) 5 mg PO BEDTIME PRN PRN Reason: SLEEP Last Admin: 09/25/16 22:26 Dose: 5 mg Vital Signs 09/25/16 09/25/16 09/25/16 20:00 21:00 21:01 Temperature 98.2 F Pulse Rate 78 73 69 Respiratory 27 25 24 Rate Blood Pressure 95/58 88/59 102/56 (mmHg) O2 Sat by Pulse 95 95 95 Oximetry 09/25/16 09/25/16 09/25/16 22:00 22:22 23:00 Temperature Pulse Rate 69 77 69 Respiratory 22 22 25 Rate Blood Pressure 96/69 106/66 90/61 (mmHg) O2 Sat by Pulse 94 95 96 Oximetry 09/25/16 09/25/16 09/26/16 23:07 23:16 00:00 Temperature 97.3 F Pulse Rate 68 65 69 Respiratory 24 24 Rate Blood Pressure 94/64 (mmHg) O2 Sat by Pulse 96 96 95 Oximetry 09/26/16 09/26/16 09/26/16 01:00 02:00 03:00 Temperature Pulse Rate 65 66 72 Respiratory 23 21 21 Rate Blood Pressure 108/69 97/65 103/65 (mmHg) O2 Sat by Pulse 96 97 95 Oximetry 09/26/16 09/26/16 09/26/16 03:45 04:00 05:00 Temperature 98.3 F Pulse Rate 61 60 Respiratory 19 20 Rate Blood Pressure 100/72 98/69 (mmHg) O2 Sat by Pulse 95 95 Oximetry 09/26/16 09/26/16 09/26/16 06:00 07:00 08:00 Temperature 98.4 F Pulse Rate 65 67 68 Respiratory 16 22 17 Rate Blood Pressure 93/65 113/72 101/65 (mmHg) O2 Sat by Pulse 96 96 95 Oximetry 09/26/16 09/26/16 09/26/16 09:00 10:00 11:00 Temperature 97.7 F Pulse Rate 76 70 Respiratory 18 18 18 Rate Blood Pressure 104/77 (mmHg) O2 Sat by Pulse 97 96 Oximetry 09/26/16 09/26/16 09/26/16 12:00 14:56 15:54 Temperature 97.6 F Pulse Rate 73 Respiratory 18 16 16 Rate Blood Pressure 108/72 (mmHg) O2 Sat by Pulse 99 Oximetry 09/26/16 09/26/16 09/26/16 15:58 17:54 18:38 Temperature Pulse Rate 80 Respiratory 16 18 27 Rate Blood Pressure 129/80 (mmHg) O2 Sat by Pulse 100 Oximetry 09/26/16 18:52 Temperature Pulse Rate Respiratory 27 Rate Blood Pressure (mmHg) O2 Sat by Pulse Oximetry Oxygen Devices in Use Now: None Appearance: Middle aged male lying in bed, NAD Eyes: No Scleral Icterus Ears/Nose/Mouth/Throat: Mucous Membranes Moist Respiratory: Symmetrical Chest Expansion and Respiratory Effort, Clear to Auscultation - decreased breath sounds ~1/[address] way up bilaterally Cardiovascular: NL Sounds; No Murmurs; No JVD, RRR, No Edema Abdominal: NL Sounds; No Tenderness; No Distention Extremities: No Clubbing, Cyanosis Skin: No Rash or Ulcers, No Nodules or Sclerosis Neurological: Alert and Oriented x 3 Result Diagrams: 09/26/16 05:30 09/26/16 05:30 Additional Lab and Data: Lab Results 09/22/16 09/22/16 09/22/16 Range/Units 22:00 22:00 22:00 WBC 15.0 H (3.5-10.8) 10^3/ul RBC 4.83 (4.0-5.4) 10^6/ul Hgb 15.1 (14.0-18.0) g/dl Hct 45 (42-52) % MCV 93 (80-94) fL MCH 31 (27-31) pg MCHC 34 (31-36) g/dl RDW 13 (10.5-15) % Plt Count 232 (150-450) 10^3/ul MPV 8 (7.4-10.4) um3 Neut % (Auto) 87.7 H (38-83) % Lymph % (Auto) 8.8 L (25-47) % Grayson % (Auto) 3.1 (1-9) % Eos % (Auto) 0 (0-6) % Baso % (Auto) 0.4 (0-2) % Absolute Neuts (auto) 13.1 H (1.5-7.7) 10^3/ul Absolute Lymphs (auto) 1.3 (1.0-4.8) 10^3/ul Absolute Monos (auto) 0.5 (0-0.8) 10^3/ul Absolute Eos (auto) 0 (0-0.6) 10^3/ul Absolute Basos (auto) 0.1 (0-0.2) 10^3/ul Absolute Nucleated RBC 0 10^3/ul Nucleated RBC % 0 INR (Anticoag Therapy) 0.87 L (0.89-1.11) APTT 29.0 (26.0-36.3) seconds Sodium 133 (133-145) mmol/L Potassium 3.8 (3.5-5.0) mmol/L Chloride 101 (101-111) mmol/L Carbon Dioxide 25 (22-32) mmol/L Anion Gap 7 (2-11) mmol/L BUN 11 (6-24) mg/dL Creatinine 1.32 H (0.67-1.17) mg/dL Est GFR ( Amer) 72.2 (>60) Est GFR (Non-Af Amer) 56.1 (>60) BUN/Creatinine Ratio 8.3 (8-20) Glucose 143 H (70-100) mg/dL Lactic Acid (0.5-2.0) mmol/L Calcium 9.2 (8.6-10.3) mg/dL Total Bilirubin 0.60 (0.2-1.0) mg/dL AST 38 (13-39) U/L ALT 18 (7-52) U/L Alkaline Phosphatase 61 (34-104) U/L Total Creatine Kinase 508 H (10-223) U/L CK-MB (CK-2) 41.5 H (0.6-6.3) ng/mL Troponin I 2.51 H* (<0.04) ng/mL B-Natriuretic Peptide ( - 100) pg/mL Total Protein 8.0 (6.4-8.9) g/dL Albumin 4.3 (3.2-5.2) g/dL Globulin 3.7 (2-4) g/dL Albumin/Globulin Ratio 1.2 (1-3) LDL Cholesterol Direct 79 mg/dL 09/22/16 09/22/16 Range/Units 22:00 22:00 WBC (3.5-10.8) 10^3/ul RBC (4.0-5.4) 10^6/ul Hgb (14.0-18.0) g/dl Hct (42-52) % MCV (80-94) fL MCH (27-31) pg MCHC (31-36) g/dl RDW (10.5-15) % Plt Count (150-450) 10^3/ul MPV (7.4-10.4) um3 Neut % (Auto) (38-83) % Lymph % (Auto) (25-47) % Grayson % (Auto) (1-9) % Eos % (Auto) (0-6) % Baso % (Auto) (0-2) % Absolute Neuts (auto) (1.5-7.7) 10^3/ul Absolute Lymphs (auto) (1.0-4.8) 10^3/ul Absolute Monos (auto) (0-0.8) 10^3/ul Absolute Eos (auto) (0-0.6) 10^3/ul Absolute Basos (auto) (0-0.2) 10^3/ul Absolute Nucleated RBC 10^3/ul Nucleated RBC % INR (Anticoag Therapy) (0.89-1.11) APTT (26.0-36.3) seconds Sodium (133-145) mmol/L Potassium (3.5-5.0) mmol/L Chloride (101-111) mmol/L Carbon Dioxide (22-32) mmol/L Anion Gap (2-11) mmol/L BUN (6-24) mg/dL Creatinine (0.67-1.17) mg/dL Est GFR ( Amer) (>60) Est GFR (Non-Af Amer) (>60) BUN/Creatinine Ratio (8-20) Glucose (70-100) mg/dL Lactic Acid 1.6 (0.5-2.0) mmol/L Calcium (8.6-10.3) mg/dL Total Bilirubin (0.2-1.0) mg/dL AST (13-39) U/L ALT (7-52) U/L Alkaline Phosphatase (34-104) U/L Total Creatine Kinase (10-223) U/L CK-MB (CK-2) (0.6-6.3) ng/mL Troponin I (<0.04) ng/mL B-Natriuretic Peptide 37 ( - 100) pg/mL Total Protein (6.4-8.9) g/dL Albumin (3.2-5.2) g/dL Globulin (2-4) g/dL Albumin/Globulin Ratio (1-3) LDL Cholesterol Direct mg/dL Microbiology and Other Data: Microbiology 09/23/16 00:51 Nasal Screen MRSA (PCR)([facility]) - Final Nasal Mrsa Positive Assess/Plan/Problems-Billing Mr Cortez is a 55 yo M who has a h/o GERD and tobacco abuse presented to the ER with c/o CP and was found to have an acute STEMI. - Patient Problems (1) STEMI (ST elevation myocardial infarction) Current Visit: Yes Status: Acute Code(s): I21.3 - ST ELEVATION (STEMI) MYOCARDIAL INFARCTION OF [facility] SITE SNOMED Code(s): 673480652 Comment: Post cardiac catheterization managment per Dr. Clay. Continue ASA , lipitor, metoprolol, captopril, prasugrel. (2) Zachery syndrome Current Visit: Yes Status: Acute Code(s): I24.1 - ZACHERY'S SYNDROME SNOMED Code(s): 65187824 Comment: The patient's ASA dose was cut back suddenly given he is on triple therapy. This evening it appears the pain he was experiencing related to pericarditis. He felt much improved with sitting forward rather than leaning back. I did not hear a rub. Will increase ASA to 325mg TID AC per recommendations from Dr. Clay. No concerns for embolism as the source of his left sided chest pain. (3) LV (left ventricular) mural thrombus with acute MT Current Visit: Yes Status: Acute Code(s): I21.29 - STEMI INVOLVING OTH SITES SNOMED Code(s): 47990141 Comment: Lovenox bridge to coumadin. Management per Dr. Clay. (4) Atelectasis of left lung Current Visit: Yes Status: Acute Code(s): J98.11 - ATELECTASIS SNOMED Code (s): 29682121 Comment: Breath sounds are diminshed bilaterally. I have again asked the patient to use the incentive spirometer routinely. No signs of infection. (5) GERD (gastroesophageal reflux disease) Current Visit: Yes Status: Acute Code(s): K21.9 - GASTRO-ESOPHAGEAL REFLUX DISEASE WITHOUT ESOPHAGITIS SNOMED Code(s): 296884748 Comment: Continue protonix. (6) Tobacco abuse Current Visit: Yes Status: Acute Code(s): Z72.0 - TOBACCO USE SNOMED Code( s): 996257126 Comment: Continue nicotine replacement therapy. Encourage smoking cessation. (7) DVT prophylaxis Current Visit: Yes Status: Acute Code(s): CQK7808 - SNOMED Code(s): 134864440 Comment: lovenox (8) Full code status Current Visit: Yes Status: Acute Code(s): Z78.9 - OTHER SPECIFIED HEALTH STATUS SNOMED Code(s): 110368611
[2016-09-26] MEDS ORDERED: Aspirin EC TAB* 325 MG ONE (19:13)
[2016-09-26] MEDS: Nicotine Patch Removal NOTE PATCH OFF SCH (21:33)
[2016-09-27 06:41] LABS: Hematocrit 43 % (42-52); Hemoglobin 14.6 g/dl (14.0-18.0); Mean Corpuscular HGB Conc 34 g/dl (31-36); Mean Corpuscular Hemoglobin 32 pg (27-31); Mean Corpuscular Volume 95 fL (80-94); Red Blood Count 4.56 10^6/ul (4.0-5.4); Red Cell Distribution Width 13 % (10.5-15); White Blood Count 9.5 10^3/ul (3.5-10.8)
[2016-09-27 06:43] LABS: BUN/Creatinine Ratio 19.5 (8-20); Calcium 8.9 mg/dL (8.6-10.3); EGFR African American 78.3 (>60); EGFR Non-African American 60.9 (>60); Potassium 4.1 mmol/L (3.5-5.0)
[2016-09-27 06:55] LABS: Comments Flag Yes
[2016-09-27 06:56] LABS: Add Diff/Slide Review? Slide Review Added
[2016-09-27] MEDS: Aspirin EC TAB* 325 MG PO SCH ×3 (09:00→18:01)
[2016-09-27] MEDS: Colchicine* 0.6 MG TAB PO SCH ×2 (09:01→21:31)
[2016-09-27] MEDS: Clopidogrel TAB* 75 MG PO SCH (09:01)
[2016-09-27] MEDS: CMCS: Pantoprazole TAB (NF) 40 MG TAB PO SCH (09:01)
[2016-09-27] MEDS: Enoxaparin(*) 80 MG/0.8 ML SYR SUBCUT SCH ×2 (09:02→21:35)
[2016-09-27] MEDS: Gabapentin CAP(*) 400 MG PO SCH ×3 (09:03→21:32)
[2016-09-27] MEDS: Nicotine PATCH 14 MG/24 HR* PATCH TRANSDERM SCH (09:04)
[2016-09-27] MEDS: Metoprolol Tartrate TAB* 50 mg PO SCH ×2 (09:04→21:33)
[2016-09-27] MEDS: Captopril TAB* 25 MG PO SCH ×3 (09:05→21:29)
[2016-09-27] MEDS ORDERED: Warfarin TAB(*) 7.5 MG PO ONE (17:00)
[2016-09-27] MEDS: Atorvastatin* 40 MG TAB PO SCH (18:01)
[2016-09-27] MEDS: Morphine INJ* 4 MG/ML 1 ML SYRINGE IV PRN (21:43)
[2016-09-27] MEDS: Nicotine Patch Removal NOTE PATCH OFF SCH (21:46)
[2016-09-28] MEDS: Aspirin EC TAB* 325 MG PO SCH ×3 (07:51→16:37)
[2016-09-28] MEDS: Colchicine* 0.6 MG TAB PO SCH ×2 (07:51→21:23)
[2016-09-28] MEDS: Metoprolol Tartrate TAB* 50 mg PO SCH ×2 (07:52→21:21)
[2016-09-28] MEDS: Clopidogrel TAB* 75 MG PO SCH (07:52)
[2016-09-28] MEDS: Gabapentin CAP(*) 400 MG PO SCH ×3 (07:52→21:22)
[2016-09-28] MEDS: Acetaminophen TAB* 325 MG PO PRN ×2 (07:52→16:37)
[2016-09-28] MEDS: Captopril TAB* 25 MG PO SCH (07:52)
[2016-09-28] MEDS: CMCS: Pantoprazole TAB (NF) 40 MG TAB PO SCH (07:52)
[2016-09-28] MEDS: Nicotine PATCH 14 MG/24 HR* PATCH TRANSDERM SCH (08:01)
[2016-09-28] MEDS: Enoxaparin(*) 80 MG/0.8 ML SYR SUBCUT SCH ×2 (09:00→21:22)
[2016-09-28] MEDS ORDERED: Lisinopril TAB* 10 MG PO SCH (09:00)
[2016-09-28] MEDS: Captopril TAB* 12.5 MG PO SCH ×3 (09:03→21:23)
[2016-09-28] MEDS: Atorvastatin* 40 MG TAB PO SCH (16:37)
[2016-09-28] MEDS ORDERED: Warfarin TAB(*) 7.5 MG PO ONE (17:00)
[2016-09-29] MEDS: Nicotine Patch Removal NOTE PATCH OFF SCH ×2 (05:40→19:17)
[2016-09-29 06:07] LABS: Hematocrit 44 % (42-52); Hemoglobin 14.8 g/dl (14.0-18.0); Mean Corpuscular HGB Conc 34 g/dl (31-36); Mean Corpuscular Hemoglobin 32 pg (27-31); Mean Corpuscular Volume 94 fL (80-94); Mean Platelet Volume 8 um3 (7.4-10.4); Red Blood Count 4.66 10^6/ul (4.0-5.4); Red Cell Distribution Width 14 % (10.5-15); White Blood Count 6.8 10^3/ul (3.5-10.8)
[2016-09-29 06:21] LABS: BUN/Creatinine Ratio 17.5 (8-20); Calcium 9.3 mg/dL (8.6-10.3); EGFR African American 76.1 (>60); EGFR Non-African American 59.2 (>60); Potassium 4.4 mmol/L (3.5-5.0)
[2016-09-29] MEDS: CMCS: Pantoprazole TAB (NF) 40 MG TAB PO SCH (07:17)
[2016-09-29] MEDS: Nicotine PATCH 14 MG/24 HR* PATCH TRANSDERM SCH (07:22)
[2016-09-29] MEDS ORDERED: Lisinopril TAB* 5 MG ONE (09:47)
[2016-09-29] MEDS: Aspirin EC TAB* 325 MG PO SCH ×2 (09:52→17:57)
[2016-09-29] MEDS: Clopidogrel TAB* 75 MG PO SCH (09:52)
[2016-09-29] MEDS: Colchicine* 0.6 MG TAB PO SCH ×2 (09:52→20:31)
[2016-09-29] MEDS: Metoprolol Tartrate TAB* 50 mg PO SCH ×2 (09:52→19:27)
[2016-09-29] MEDS: Gabapentin CAP(*) 400 MG PO SCH ×3 (09:53→20:32)
[2016-09-29] MEDS: Enoxaparin(*) 80 MG/0.8 ML SYR SUBCUT SCH (09:54)
[2016-09-29] MEDS: Captopril TAB* 12.5 MG PO SCH (09:56)
[2016-09-29] MEDS ORDERED: Lisinopril TAB* 5 MG PO SCH (10:00)
[2016-09-29] MEDS: Atorvastatin* 40 MG TAB PO SCH (17:56)
[2016-09-29] MEDS: Metoprolol Tartrate TAB* 25 MG PO SCH (20:32)
[2016-09-30] MEDS: Morphine INJ* 4 MG/ML 1 ML SYRINGE IV PRN (00:16)
[2016-09-30] MEDS: CMCS: Pantoprazole TAB (NF) 40 MG TAB PO SCH (08:53)
[2016-09-30] MEDS: Aspirin EC TAB* 325 MG PO SCH ×2 (08:53→16:15)
[2016-09-30] MEDS: Clopidogrel TAB* 75 MG PO SCH (08:53)
[2016-09-30] MEDS: Gabapentin CAP(*) 400 MG PO SCH ×3 (08:54→20:37)
[2016-09-30] MEDS: Colchicine* 0.6 MG TAB PO SCH ×2 (08:54→20:38)
[2016-09-30] MEDS: Lisinopril TAB* 5 MG PO SCH (08:55)
[2016-09-30] MEDS: Metoprolol Tartrate TAB* 25 MG PO SCH (09:05)
[2016-09-30] MEDS: Nicotine PATCH 14 MG/24 HR* PATCH TRANSDERM SCH (09:06)
[2016-09-30] MEDS: Enoxaparin(*) 40 MG/0.4 ML SYR SUBCUT SCH (13:54)
[2016-09-30] MEDS: Acetaminophen TAB* 325 MG PO PRN (15:27)
[2016-09-30] MEDS: ALPRAZolam TAB* 0.5 MG PO PRN (15:28)
[2016-09-30] MEDS ORDERED: Warfarin TAB(*) 7.5 MG PO SCH (17:00)
[2016-09-30] MEDS: Atorvastatin* 40 MG TAB PO SCH (17:05)
[2016-09-30] MEDS: Nicotine Patch Removal NOTE PATCH OFF SCH (20:31)
[2016-09-30] MEDS ORDERED: Metoprolol Tartrate TAB* 25 MG PO ONE (21:00)
[2016-10-01] MEDS: Enoxaparin(*) 40 MG/0.4 ML SYR SUBCUT SCH ×2 (01:57→14:44)
[2016-10-01] MEDS: Acetaminophen TAB* 325 MG PO PRN (02:02)
[2016-10-01] MEDS: CMCS: Pantoprazole TAB (NF) 40 MG TAB PO SCH (07:43)
[2016-10-01] MEDS: Aspirin EC TAB* 325 MG PO SCH (07:44)
[2016-10-01] MEDS: Clopidogrel TAB* 75 MG PO SCH (08:41)
[2016-10-01] MEDS: Lisinopril TAB* 5 MG PO SCH (08:41)
[2016-10-01] MEDS: Gabapentin CAP(*) 400 MG PO SCH ×2 (08:41→14:44)
[2016-10-01] MEDS: Colchicine* 0.6 MG TAB PO SCH (08:41)
[2016-10-01] MEDS: Nicotine PATCH 14 MG/24 HR* PATCH TRANSDERM SCH (08:42)
[2016-10-01] MEDS ORDERED: Metoprolol Tartrate TAB* 25 MG PO SCH (09:00)
[2016-10-01] MEDS ORDERED: Omeprazole CAP* 20 MG PO SCH (09:00)
[2016-10-01 09:33] VITALS: BP 111/68
[2016-10-01] MEDS ORDERED: Warfarin TAB(*) 5 MG PO ONE (17:00)
[2016-10-01] MEDS ORDERED: Warfarin TAB(*) 5 MG PO SCH (17:00)
[2016-10-01] MEDS ORDERED: Lisinopril TAB* 5 MG PO SCH (21:00)
--- NOTE | 2016-10-02 08:59 | DS ---
CC: Dr. Stinson; Dr. Olmedo DISCHARGE SUMMARY: DATE OF ADMISSION: 09/22/16 DATE OF DISCHARGE: 10/01/16. PRIMARY CARE PHYSICIAN: Dr. Stinson HOOP PUNCH OPERATOR HELPER: Dr. Olmedo DISCHARGE DIAGNOSES: 1. Anterolateral ST elevation infarct, late presentation. 2. Congestive heart failure, systolic, acute. 3. Tobacco use. 4. Family history of premature coronary artery disease. 5. Acid reflux. 6. Post myocardial infarction pericarditis. 7. LV apical thrombus. 8. Chronic kidney disease, stage II to III. PROCEDURES: Cardiac cath, stent placement, Dr. Olmedo on 09/22/16, stent placement LAD 2.5 x 24 Syn ergy drug-eluting stent with a distal 2.25 x 8 Synergy drug-eluting stent, double bolus IC Integrili n, IC Nipride, right radial artery access, right femoral artery access due to very small right radia l artery. DISCHARGE INSTRUCTIONS: 1. Activity - no strenuous exertion for one week, to walk 30 minutes daily . 2. Wound care - shower only for two days. 3. Pro-time on , 10/03/16, at the coagulation clinic. DISCHARGE MEDICATIONS: 1. Ventolin two puffs q.4 p.r.n. 2. Aspirin 325 mg b.i.d. in tapering dose. 3. Lipitor 40 mg daily. 4. Plavix 75 mg daily. 5. Colchicine 0.6 mg b.i.d. 6. Lovenox 40 mg subcu b.i.d. until PT/INR therapeutic. 7. Neurontin 400 mg t.i.d. 8. Lisinopril 5 mg b.i.d. 9. Lopressor 25 b.i.d. 10. Nitroglycerin 0.4 sublingual p.r.n. 11. Prilosec 20 mg daily. 12. Coumadin 5 mg daily or as directed by Coumadin Clinic. FOLLOWUP: With Dr. Olmedo next week for wound check, Coumadin Clinic as above, Dr. Stinson as be fore. LABS: His BMP remained stable with stage II to III CKD. On 09/29/16 creatinine was 1.26, BUN 22, c reatinine clearance 59. His CRP was very high at 135.6. His blood sugars random remained elevated, but his glycohemoglobin A1c was normal at 5.7. His CPK peaked at 4860, MP peaked at 541.5, troponi n in excess of 85. BNP was 37 at presentation. His total cholesterol was 139, triglycerides 37, LD L 83, HDL 48.7. His CBC remained stable post revascularization. HOSPITAL COURSE: He presented late with an anterolateral ST elevation infarct with already a QS pat tern in the precordial leads with LV dysfunction. He subsequently developed post OR pericarditis wi th a rub and typical pain. Repeat echo on 09/25/16 revealed apical akinesis with smoke in the apex, and an apical thrombus, with LVEF of 35 to 40%. There was no significant pericardial effusion. Be cause of his pericarditis, he was started on aspirin, colchicine was added, his symptoms of pericard itis and the rub resolved. He had no access site complications, does have a moderate-sized ecchymos is in the right forearm. Radial artery is intact by reverse Jim. The groin site remained stable. He received beta blockade and afterload reduction. He was continued on dual antiplatelet therapy, but was switched to Plavix because of the institution of Coumadin. He is being discharged with an INR of 1.63, is going home on Coumadin 5 mg daily with Lovenox 40 mg subcu b.i.d., which is 1 mg per kg b.i.d. for him. As soon as he is therapeutic with INR of 2 to 2. 5, Lovenox will be stopped. He will follow in Coumadin Clinic. He had no heart failure symptoms, n o arrhythmias, no further ischemic chest pain. He does have intermittent left-sided precordial pleu ral pericardial discomfort. On the day of discharge, he is stable with BP 111/68, heart rate in the 50 to 60 sinus rhythm with c lear lungs, no pericardial rub. He received full discharge instructions. [id number] #: [id number]
== END 2016-10-01 16:19 | disposition home or self-care (01) | DRG 174 ==
LOC: ED 21:49 → ICU 22:17 → MEDTELE 09-26 13:26
PROVIDERS: ADMIT Internal Medicine Cardiovascular Disease; ATTEND Internal Medicine Cardiovascular Disease
PROC: B211YZZ Fluoroscopy of Multiple Coronary Arteries using Other Contrast (ICD-10-PCS; 2016-09-22)
PROC: 4A023N7 Measurement of Cardiac Sampling and Pressure, Left Heart, Percutaneous Approach (ICD-10-PCS; 2016-09-22)
PROC: 3E073PZ Introduction of Platelet Inhibitor into Coronary Artery, Percutaneous Approach (ICD-10-PCS; 2016-09-22)
PROC: 027035Z Dilation of Coronary Artery, One Artery with Two Drug-eluting Intraluminal Devices, Percutaneous Approach (ICD-10-PCS; principal; 2016-09-22 15:00)
DX: I21.09 ST elevation (STEMI) myocardial infarction involving other coronary artery of anterior wall (principal); I50.21 Acute systolic (congestive) heart failure; I24.1 Dressler's syndrome; J98.11 Atelectasis; I13.0 Hypertensive heart and chronic kidney disease with heart failure and stage 1 through stage 4 chronic kidney disease, or unspecified chronic kidney disease; I25.10 Atherosclerotic heart disease of native coronary artery without angina pectoris; F41.9 Anxiety disorder, unspecified; K21.9 Gastro-esophageal reflux disease without esophagitis; E78.5 Hyperlipidemia, unspecified; J44.9 Chronic obstructive pulmonary disease, unspecified; B19.20 Unspecified viral hepatitis C without hepatic coma; F17.210 Nicotine dependence, cigarettes, uncomplicated; S50.11XA Contusion of right forearm, initial encounter; N18.2 Chronic kidney disease, stage 2 (mild); I21.29 ST elevation (STEMI) myocardial infarction involving other sites; Z90.49 Acquired absence of other specified parts of digestive tract; Z83.79 Family history of other diseases of the digestive system; Z82.3 Family history of stroke; Z72.89 Other problems related to lifestyle; Z82.49 Family history of ischemic heart disease and other diseases of the circulatory system; Z79.82 Long term (current) use of aspirin; Z79.02 Long term (current) use of antithrombotics/antiplatelets; Z79.01 Long term (current) use of anticoagulants
CPT/HCPCS: 36415; 71010; 80048; 80053; 80061; 82550; 82553; 83036; 83605; 83721; 83880; 84484; 85025; 85610; 85730; 86140; 87641; 93005; 93306; 93308; 94760; 99285; 99406; A9270-GY; C1725; C1760; C1769; C1876; C1887; C9606-LD; J1327; J1644; J1650; J2001; J2250; J2270; J3010

== ENCOUNTER 2017-07-30 12:19 | Emergency (ER) | payer BC ==
--- NOTE | 2017-07-30 14:00 | ED ---
Lower Extremity <Jean Carlos Pascual - Last Filed: 08/07/17 19:29> - HPI Summary HPI Summary: Rt LE pain x 2 days. Pt reports pain from Rt knee to ankle - no alleviating and no exacerbating factors - worse at night. Has baseline neuropathy around ankle but this is now extending up to knee past 2 days. Takes gabapentin 400mg 3 x day for neuropathy - no relief of new pain. Was on coumadin for ND last year - stopped this 3 weeks ago. Has varicose veins worse on Rt than on Lt. Smokes. Denies h/o clotting. Also denies JAMAAL injury to back, hip, knee, ankle or foot. No h/o back issues. - History of Current Complaint Hx Obtained From: Patient Pain Intensity: 10 <Danielle Deras - Last Filed: 08/09/17 12:21> - History of Current Complaint Chief Complaint: EDExtremityLower Stated Complaint: RIGHT LEG INJURY Time Seen by Provider: 07/30/17 13:27 - Allergies/Home Medications Allergies/Adverse Reactions: Allergies Allergy/AdvReac Type Severity Reaction Status Date / Time No Known Allergies Allergy Verified 07/30/17 13:01 PMH/Surg Hx/FS Hx/Imm Hx Previously Healthy: Yes Endocrine/Hematology History: Denies: Hx Anticoagulant Therapy, Hx Blood Disorders, Hx Diabetes, Hx Thyroid Disease, Hx Coagulopothy Cardiovascular History: Reports: Hx Coronary Artery Disease, Hx Hypertension, Hx Myocardial Infarction - stent(s) placed - on coumadin until recently Denies: Hx Deep Vein Thrombosis Respiratory History: Reports: Hx Chronic Obstructive Pulmonary Disease (COPD) - POSSIBLE Denies: Hx Asthma GI History: Denies: Hx Ulcer Neurological History: Reports: Hx Peripheral Neuropathy - Surgical History Surgery Procedure, Year, and Place: GALL BLADDER REMOVAL, JUL 2013 Infectious Disease History: No Infectious Disease History: Reports: Hx Hepatitis - c Denies: Hx Human Immunodeficiency Virus (HIV), Hx of Known/Suspected MRSA, Traveled Outside the [place] in Last 30 Days - Family History Known Family History: Positive: Other - NO FAM HX CLOTS, Mother Stroke, Brother cirrhosis - Social History Alcohol Use: Rare Hx Substance Use: No Substance Use Type: Reports: None Hx Tobacco Use: Yes Smoking Status (MU): Current Every Day Smoker Type: Cigarettes Amount Used/How Often: 1.5 PPD Have You Smoked in the Last Year: Yes <Danielle Deras - Last Filed: 08/09/17 12:21> Review of Systems Constitutional: Negative Negative: Fever, Chills, Fatigue Cardiovascular: Negative Negative: Palpitations, Chest Pain Respiratory: Negative Negative: Shortness Of Breath, Cough Gastrointestinal: Negative Negative: Abdominal Pain, Vomiting, Diarrhea, Nausea Positive: no symptoms reported Musculoskeletal: Other - leg pain Negative: Decreased ROM, Edema Skin: Negative Neurological: Other - acute on chronic neuropathy Negative: Headache Psychological: Normal All Other Systems Reviewed And Are Negative: Yes <Danielle Deras - Last Filed: 08/09/17 12:21> Physical Exam Vital Signs On Initial Exam: Initial Vitals Temp Pulse Resp BP Pulse Ox 99.3 F 62 20 143/89 98 07/30/17 12:27 07/30/17 12:27 07/30/17 12:27 07/30/17 12:27 07/30/17 12:27 <Jean Carlos Pascual - Last Filed: 08/07/17 19:29> Triage Information Reviewed: Yes Vital Signs On Initial Exam: Initial Vitals Temp Pulse Resp BP Pulse Ox 99.3 F 62 20 143/89 98 07/30/17 12:27 07/30/17 12:27 07/30/17 12:27 07/30/17 12:27 07/30/17 12:27 Vital Signs Reviewed: Yes Appearance: Positive: Well-Appearing, Well-Nourished, Pain Distress - at times appears comfortable - at other times, appears to be struggling with pain in Rt LE -intermittent w/o pattern Skin: Positive: Warm, Skin Color Reflects Adequate Perfusion - varicose vv B/L Rt > Lt, Dry Head/Face: Positive: Normal Head/Face Inspection Eyes: Positive: Conjunctiva Clear - anicteric sclera ENT: Positive: Hearing grossly normal Respiratory/Lung Sounds: Positive: Clear to Auscultation, Breath Sounds Present. Negative: Rales, Stridor, Tracheal Deviation, Wheezes Cardiovascular: Positive: RRR, Pulses are Symmetrical in both Upper and Lower Extremities - DP's+ 2 equal B/L - cap refill < 2 secs, Leg Edema Right - mild compared to Lt; + Joanie's but not consistent Abdomen Description: Positive: Nontender, Soft, Other: - femoral pulses equal B/ L. Negative: Pulsatile Mass Bowel Sounds: Positive: Present Musculoskeletal: Positive: Normal, Strength/ROM Intact - equal B/L Neurological: Positive: Sensory/Motor Intact, Alert, Oriented to Person Place, Time, CN Intact II-III, Facial Symmetry, Speech Normal Psychiatric: Positive: Normal - Duran Coma Scale Coma Scale Total: 15 <Danielle Deras - Last Filed: 08/09/17 12:21> Diagnostics - Vital Signs Vital Signs Temp Pulse Resp BP Pulse Ox 07/30/17 17:57 99.1 F 57 22 136/80 98 07/30/17 12:27 99.3 F 62 20 143/89 98 - Laboratory Lab Results: Lab Results 07/30/17 07/30/17 07/30/17 Range/Units 17:16 17:16 17:16 WBC 6.5 (3.5-10.8) 10^3/ul RBC 4.54 (4.0-5.4) 10^6/ul Hgb 14.9 (14.0-18.0) g/dl Hct 43 (42-52) % MCV 96 H (80-94) fL MCH 33 H (27-31) pg MCHC 34 (31-36) g/dl RDW 13 (10.5-15) % Plt Count 204 (150-450) 10^3/ul MPV 8 (7.4-10.4) um3 Neut % (Auto) 58.8 (38-83) % Lymph % (Auto) 24.4 L (25-47) % [place] % (Auto) 11.2 H (1-9) % Eos % (Auto) 4.2 (0-6) % Baso % (Auto) 1.4 (0-2) % Absolute Neuts (auto) 3.8 (1.5-7.7) 10^3/ul Absolute Lymphs (auto) 1.6 (1.0-4.8) 10^3/ul Absolute Monos (auto) 0.7 (0-0.8) 10^3/ul Absolute Eos (auto) 0.3 (0-0.6) 10^3/ul Absolute Basos (auto) 0.1 (0-0.2) 10^3/ul Absolute Nucleated RBC 0 10^3/ul Nucleated RBC % 0 INR (Anticoag Therapy) 0.92 (0.77-1.02) APTT 30.4 (26.0-36.3) seconds Sodium 134 (133-145) mmol/L Potassium 4.7 (3.5-5.0) mmol/L Chloride 101 (101-111) mmol/L Carbon Dioxide 28 (22-32) mmol/L Anion Gap 5 (2-11) mmol/L BUN 11 (6-24) mg/dL Creatinine 1.32 H (0.67-1.17) mg/dL Est GFR ( Amer) 71.9 (>60) Est GFR (Non-Af Amer) 55.9 (>60) BUN/Creatinine Ratio 8.3 (8-20) Glucose 94 (70-100) mg/dL Calcium 9.5 (8.6-10.3) mg/dL Total Bilirubin 0.60 (0.2-1.0) mg/dL AST 23 (13-39) U/L ALT 15 (7-52) U/L Alkaline Phosphatase 49 (34-104) U/L Total Protein 8.4 (6.4-8.9) g/dL Albumin 4.3 (3.2-5.2) g/dL Globulin 4.1 H (2-4) g/dL Albumin/Globulin Ratio 1.0 (1-3) Result Diagrams: 07/30/17 17:16 07/30/17 17:16 Lab Statement: Any lab studies that have been ordered have been reviewed, and results considered in the medical decision making process. <Jean Carlos Pascual - Last Filed: 08/07/17 19:29> - Vital Signs Vital Signs Temp Pulse Resp BP Pulse Ox 07/30/17 12:27 99.3 F 62 20 143/89 98 - Laboratory Result Diagrams: 07/30/17 17:16 07/30/17 17:16 Diagnostic Studies Comment: US Rt LE: no DVT however pt has non-occlusive 5mm thrombus extending from previous U/S. Discussed results w/ Dr. Stinson who will treat as DVT and f/u w/ pt. States we may restart coumdain w/o lovenox bridge and pt will f/u w/ Milad for lab recheck and dose adjustments as needed (will get baseline here today). Lab Statement: Any lab studies that have been ordered have been reviewed, and results considered in the medical decision making process. <Danielle Deras - Last Filed: 08/09/17 12:21> Lower Extremity Course/Dx <Toshia Pascualter - Last Filed: 08/07/17 19:29> - Course Course Of Treatment: Spoke w/ Dr. Ross about pt's health hx. Pre Milad, pt's notes indicate cardiology recently stopped coumadin which he was taking s/p embolic cardiac disease (ND). He also confirmed pt's neuropathy and agrees to f/u w/ pt. Will tx today's U/S findings as DVT for all intents and purposes and restart coumadin only - Milad agrees to monitor and manage pt from there. Pt aware of plan and agrees - has coumadin left over at home and will restart tonight and continue until f/u w/ Milad in a few days. Danger s/sx reviewed w/ pt. He agrees w/ plan. He is driving today so narcotic pain meds could not be administered here however pain med provided to take at home to help with sleep tonight. Pt will f/u w/ PCP for pain control thereforth. <Danielle Deras - Last Filed: 08/09/17 12:21> - Diagnoses Provider Diagnoses: DVT (deep venous thrombosis) Discharge <Jean Carlos Pascual - Last Filed: 08/07/17 19:29> <Danielle Deras - Last Filed: 08/09/17 12:21> - Discharge Plan Condition: Stable Disposition: HOME Patient Education Materials: Deep Venous Thrombosis (ED) Forms: *Work Release Referrals: Pascual Stinson MD [Primary Care Provider] - Additional Instructions: You appear to have a clot growing in one of the veins of your Right lower leg. It is important that you restart your coumadin (you expressed you have some left over at home - take 5mg PO daily until seen by Dr. Kevin Friday - call tomorrow to schedule an appointment for this Friday08/01/2017). You have been provided with a short course of pain medication through the ED for nighttime pain - norco 5mg. Take 1 each night before bed as needed for pain. If you are still having pain Friday, please discuss options for treatment with PCP at appointment. Differential diagnosis for pain today includes worsening of neuropathy. You may benefit from increase in gabapentin if so or different neuropathic pain medication. Discuss w/ PCP. *If in the meantime you develop acute swelling of your leg, streaking redness, fever, chills, chest pain, shortness of breath return to the ED
[2017-07-30] MEDS ORDERED: Acetaminophen TAB* 325 MG PO ONE (14:02)
--- NOTE | 2017-07-30 15:07 | RAD ---
INDICATION: RIGHT leg numbness and pain. Tobacco use. Stopped anticoagulation 3 weeks ago. History of varicose veins. COMPARISON: September 13, 2015 TECHNIQUE: Jonas scale, color Doppler, and spectral analysis of the deep veins of the RIGHT lower extremity. Vessel compression, phasicity, and augmentation assessed. REPORT: The RIGHT common femoral, profunda femoral, partially duplicated femoral, popliteal, peroneal, and posterior tibial veins are patent. There is nonocclusive hyperechoic chronic appearing thrombus within the RIGHT proximal and mid thigh segments of the great saphenous vein extending to within 5 mm of the saphenous femoral junction with interval further cephalad propagation compared with the 2016 exam. The great saphenous vein appears tortuous at the calf without chronic or acute thrombosis of the saphenous vein at the calf. Patency of the LEFT common femoral vein documented. IMPRESSION: 1. No evidence for RIGHT lower extremity deep venous thrombosis. 2. There is nonocclusive hyperechoic chronic appearing thrombus within the RIGHT proximal and mid thigh segments of the great saphenous vein extending to within 5 mm of the saphenous femoral junction with interval further cephalad propagation compared with the 2016 exam.
[2017-07-30] MEDS ORDERED: HYDROcodone/ACETAMIN 5-325 MG* 1 TAB PO ONE (17:17)
[2017-07-30 17:30] LABS: ABS Basophils 0.1 10^3/ul (0-0.2); ABS Eosinophils 0.3 10^3/ul (0-0.6); ABS Lymphocytes 1.6 10^3/ul (1.0-4.8); ABS Monocytes 0.7 10^3/ul (0-0.8); ABS Neutrophils 3.8 10^3/ul (1.5-7.7); ABS Nucleated RBC 0 10^3/ul; Eosinophil % 4.2 % (0-6); Hematocrit 43 % (42-52); Hemoglobin 14.9 g/dl (14.0-18.0); Lymphocyte % 24.4 % (25-47); Mean Corpuscular HGB Conc 34 g/dl (31-36); Mean Corpuscular Hemoglobin 33 pg (27-31); Mean Corpuscular Volume 96 fL (80-94); Mean Platelet Volume 8 um3 (7.4-10.4); Nucleated Red Blood Cells % 0; Platelet Count 204 10^3/ul (150-450); Red Blood Count 4.54 10^6/ul (4.0-5.4); Red Cell Distribution Width 13 % (10.5-15); White Blood Count 6.5 10^3/ul (3.5-10.8)
[2017-07-30 17:43] LABS: EGFR Non-African American 55.9 (>60)
[2017-07-30 17:45] LABS: INR 0.92 (0.77-1.02)
[2017-07-30 17:59] VITALS: BP 136/80
== END 2017-07-30 17:57 | disposition home or self-care (01) ==
LOC: ED 12:19
DX: I82.4Z1 Acute embolism and thrombosis of unspecified deep veins of right distal lower extremity (principal); Z86.79 Personal history of other diseases of the circulatory system; F17.210 Nicotine dependence, cigarettes, uncomplicated
CPT/HCPCS: 36415; 80053; 85025; 85610; 85730; 99282; A9270-GY

== ENCOUNTER 2018-03-17 18:07 | Emergency (ER) | payer BC ==
[2018-03-17 18:54] LABS: ABS Basophils 0.1 10^3/ul (0-0.2); ABS Eosinophils 0.5 10^3/ul (0-0.6); ABS Monocytes 0.6 10^3/ul (0-0.8); ABS Neutrophils 5.3 10^3/ul (1.5-7.7); ABS Nucleated RBC 0 10^3/ul; Hematocrit 41 % (42-52); Hemoglobin 14.4 g/dl (14.0-18.0); Lymphocyte % 23.3 % (25-47); Mean Corpuscular HGB Conc 35 g/dl (31-36); Mean Corpuscular Hemoglobin 32 pg (27-31); Mean Corpuscular Volume 93 fL (80-94); Mean Platelet Volume 8.1 um3 (7.4-10.4); Nucleated Red Blood Cells % 0.1; Platelet Count 187 10^3/ul (150-450); Red Blood Count 4.45 10^6/ul (4.00-5.40); Red Cell Distribution Width 14 % (10.5-15); White Blood Count 8.4 10^3/ul (3.5-10.8)
[2018-03-17 19:03] LABS: INR 0.91 (0.77-1.02)
[2018-03-17 19:11] LABS: EGFR Non-African American 58.8 (>60)
--- NOTE | 2018-03-17 20:34 | ED ---
HPI Chest Pain - HPI Summary HPI Summary: 57 y/o male presents to the ED sent by PCP for abnormal EKG. 2 years ago [place] ( stent placed by Dr. Solomon). Pt c/o mild CP, lasting seconds, while working. Not aggravated or alleviated by anything. Pt washes cars. Smoker. Denies SOB, N/ V, diaphoresis. Pt had a blood clot in his leg earlier in 2018. - History of Current Complaint Chief Complaint: EDHypertension Hx Obtained From: Patient Onset/Duration: Resolved Timing: Lasting Seconds Pain Intensity: 0 Pain Scale Used: 0-10 Numeric Aggravating Factor(s): Nothing Alleviating Factor(s): Nothing Associated Signs and Symptoms: Positive: Chest Pain - Additional Pertinent History Primary Care Physician: MARYSOL - Allergy/Home Medications Allergies/Adverse Reactions: Allergies Allergy/AdvReac Type Severity Reaction Status Date / Time No Known Allergies Allergy Verified 03/17/18 18:15 PMH/Surg Hx/FS Hx/Imm Hx Previously Healthy: No Endocrine/Hematology History: Denies: Hx Diabetes, Hx Thyroid Disease Cardiovascular History: Reports: Hx Hypertension, Hx Myocardial Infarction Respiratory History: Reports: Hx Chronic Obstructive Pulmonary Disease (COPD) - POSSIBLE Denies: Hx Asthma GI History: Denies: Hx Ulcer History: Denies: Hx Renal Disease - Surgical History Surgery Procedure, Year, and Place: RT FOOT SKIN GRAFT FROM CEMENT POISONING- , VASECTOMY, CHOLECYSTECTOMY, X 2 CARDIAC STENTS Infectious Disease History: No Infectious Disease History: Reports: Hx Hepatitis - c Denies: Hx Human Immunodeficiency Virus (HIV), Hx of Known/Suspected MRSA, Traveled Outside the [place] in Last 30 Days - Family History Known Family History: Positive: Other - NO FAM HX CLOTS, Mother Stroke, Brother cirrhosis - Social History Alcohol Use: None Substance Use Type: Reports: None Hx Tobacco Use: Yes Smoking Status (MU): Heavy Every Day Tobacco Smoker Type: Cigarettes Amount Used/How Often: 1.5 PPD Have You Smoked in the Last Year: Yes Review of Systems Constitutional: Negative Eyes: Negative ENT: Negative Positive: Chest Pain Respiratory: Negative Gastrointestinal: Negative Genitourinary: Negative Musculoskeletal: Negative Skin: Negative Neurological: Negative Psychological: Normal All Other Systems Reviewed And Are Negative: No Physical Exam - Summary Physical Exam Summary: Appearance: Alert, conversive, nontoxic appearing Skin: Warm, dry, no mottling, no rashes, no contusions HEENT: EOMI, PERRL, dry mucous membranes Neck: No masses on the neck, supple Respiratory: Wheezes throughout, breath sounds present, no rales, no rhonchi, no wheezes Cardiovascular: RRR, pulses are symmetrical in both lower and upper extremities Abdomen: Soft, non-tender Bowel Sounds: Present Musculoskeletal: No CVA tenderness, no obvious deformity, moving all extremities in a grossly normal manner Neurological: A&Ox3, CN II-XII Intact, moving all extremities symmetrically Psychiatric: Normal affect and mood Triage Information Reviewed: Yes Vital Signs On Initial Exam: Initial Vitals Temp Pulse Resp BP Pulse Ox 98.1 F 55 18 164/87 100 03/17/18 18:12 03/17/18 18:12 03/17/18 18:12 03/17/18 18:12 03/17/18 18:12 Vital Signs Reviewed: Yes Diagnostics - Vital Signs Vital Signs Temp Pulse Resp BP Pulse Ox 03/17/18 19:40 55 16 120/71 97 03/17/18 19:10 57 17 126/75 98 03/17/18 19:03 57 17 100 03/17/18 18:43 56 03/17/18 18:40 19 163/87 03/17/18 18:36 16 03/17/18 18:12 98.1 F 55 18 164/87 100 - Laboratory Lab Results: Lab Results 03/17/18 03/17/18 03/17/18 Range/Units 18:49 18:49 18:49 WBC 8.4 (3.5-10.8) 10^3/ul RBC 4.45 (4.00-5.40) 10^6/ul Hgb 14.4 (14.0-18.0) g/dl Hct 41 L (42-52) % MCV 93 (80-94) fL MCH 32 H (27-31) pg MCHC 35 (31-36) g/dl RDW 14 (10.5-15) % Plt Count 187 (150-450) 10^3/ul MPV 8.1 (7.4-10.4) um3 Neut % (Auto) 62.9 (38-83) % Lymph % (Auto) 23.3 L (25-47) % Weston % (Auto) 6.6 (0-7) % Eos % (Auto) 6.0 (0-6) % Baso % (Auto) 1.2 (0-2) % Absolute Neuts (auto) 5.3 (1.5-7.7) 10^3/ul Absolute Lymphs (auto) 2.0 (1.0-4.8) 10^3/ul Absolute Monos (auto) 0.6 (0-0.8) 10^3/ul Absolute Eos (auto) 0.5 (0-0.6) 10^3/ul Absolute Basos (auto) 0.1 (0-0.2) 10^3/ul Absolute Nucleated RBC 0 10^3/ul Nucleated RBC % 0.1 INR (Anticoag Therapy) 0.91 (0.77-1.02) APTT 32.1 (26.0-36.3) seconds Sodium 137 (135-145) mmol/L Potassium 4.2 (3.5-5.0) mmol/L Chloride 104 (101-111) mmol/L Carbon Dioxide 26 (22-32) mmol/L Anion Gap 7 (2-11) mmol/L BUN 20 (6-24) mg/dL Creatinine 1.26 H (0.67-1.17) mg/dL Est GFR ( Amer) 71.1 (>60) Est GFR (Non-Af Amer) 58.8 (>60) BUN/Creatinine Ratio 15.9 (8-20) Glucose 90 (70-100) mg/dL Calcium 9.4 (8.6-10.3) mg/dL Magnesium 1.9 (1.9-2.7) mg/dL Total Bilirubin 0.50 (0.2-1.0) mg/dL AST 26 (13-39) U/L ALT 18 (7-52) U/L Alkaline Phosphatase 57 (34-104) U/L Troponin I 0.01 (<0.04) ng/mL B-Natriuretic Peptide ( - 100) pg/mL Total Protein 8.3 (6.4-8.9) g/dL Albumin 4.6 (3.2-5.2) g/dL Globulin 3.7 (2-4) g/dL Albumin/Globulin Ratio 1.2 (1-3) TSH 10.19 H (0.34-5.60) mcIU/mL 03/17/18 Range/Units 18:49 WBC (3.5-10.8) 10^3/ul RBC (4.00-5.40) 10^6/ul Hgb (14.0-18.0) g/dl Hct (42-52) % MCV (80-94) fL MCH (27-31) pg MCHC (31-36) g/dl RDW (10.5-15) % Plt Count (150-450) 10^3/ul MPV (7.4-10.4) um3 Neut % (Auto) (38-83) % Lymph % (Auto) (25-47) % Weston % (Auto) (0-7) % Eos % (Auto) (0-6) % Baso % (Auto) (0-2) % Absolute Neuts (auto) (1.5-7.7) 10^3/ul Absolute Lymphs (auto) (1.0-4.8) 10^3/ul Absolute Monos (auto) (0-0.8) 10^3/ul Absolute Eos (auto) (0-0.6) 10^3/ul Absolute Basos (auto) (0-0.2) 10^3/ul Absolute Nucleated RBC 10^3/ul Nucleated RBC % INR (Anticoag Therapy) (0.77-1.02) APTT (26.0-36.3) seconds Sodium (135-145) mmol/L Potassium (3.5-5.0) mmol/L Chloride (101-111) mmol/L Carbon Dioxide (22-32) mmol/L Anion Gap (2-11) mmol/L BUN (6-24) mg/dL Creatinine (0.67-1.17) mg/dL Est GFR ( Amer) (>60) Est GFR (Non-Af Amer) (>60) BUN/Creatinine Ratio (8-20) Glucose (70-100) mg/dL Calcium (8.6-10.3) mg/dL Magnesium (1.9-2.7) mg/dL Total Bilirubin (0.2-1.0) mg/dL AST (13-39) U/L ALT (7-52) U/L Alkaline Phosphatase (34-104) U/L Troponin I (<0.04) ng/mL B-Natriuretic Peptide 128 H ( - 100) pg/mL Total Protein (6.4-8.9) g/dL Albumin (3.2-5.2) g/dL Globulin (2-4) g/dL Albumin/Globulin Ratio (1-3) TSH (0.34-5.60) mcIU/mL Result Diagrams: 03/17/18 18:49 03/17/18 18:49 Lab Statement: Any lab studies that have been ordered have been reviewed, and results considered in the medical decision making process. - Radiology CXR Xray Interpretation: No Acute Changes Radiology Interpretation Completed By: ED Physician - Additional Comments Diagnostic Additional Comments: EKG - SB @ 54 BPM. Prolonged QRSD, normal QTc. ST depressions in II, III and aVF. Inverted T waves in V4-V5. Old probable anteroseptal infarct. No acute changes compared to previous EKG done on 09/28/16. Chest Pain Course/Dx - Course Assessment/Plan: Sent by PCP for abnormal EKG. Mild, lasting seconds CP at work. CXR negative. 1st Trop 0.01. Repeat Trop 0.01. EKG - SB @ 54 BPM. Prolonged QRSD, normal QTc. ST depressions in II, III and aVF. Inverted T waves in V4-V5. Old probable anteroseptal infarct. No acute changes compared to previous EKG done on 09/28/16. Pt will be d/c home. - Diagnoses Provider Diagnoses: Hypothyroidism, Chronic hypertension Discharge - Sign-Out/Discharge Documenting (check all that apply): Patient Departure - Discharge Plan Condition: Stable Disposition: HOME Patient Education Materials: Hypothyroidism (ED), Chronic Hypertension (ED) Referrals: Pascual Stinson MD [Primary Care Provider] - Additional Instructions: Follow up with your primary care physician. Please discuss your abnormal thyroid levels. return if worse or any new symptoms. Take all medications as previously instructed. - Billing Disposition and Condition Condition: STABLE Disposition: Home - Attestation Statements Document Initiated by Scribe: Yes Documenting Scribe: Martell Neville Provider For Whom Scribe is Documenting (Include Credential): Catrina Miguel MD Scribe Attestation: Martell Martins, scribed for Catrina Miguel MD on 03/19/18 at 1136. Scribe Documentation Reviewed: Yes Provider Attestation: The documentation as recorded by the scribeMartell accurately reflects the service I personally performed and the decisions made by me, Catrina Miguel MD
[2018-03-17 22:38] VITALS: BP 140/77
--- NOTE | 2018-03-18 07:45 | RAD ---
HISTORY: chest pain COMPARISONS: September 24, 2016 VIEWS: 4: Frontal dual-energy and lateral views of the chest. FINDINGS: CARDIOMEDIASTINAL SILHOUETTE: The cardiomediastinal silhouette is normal. ASHLEY: The ashley are normal. PLEURA: The costophrenic angles are sharp. No pleural abnormalities are noted. LUNG PARENCHYMA: There is hyperinflation with flattening of the diaphragm and expansion of the AP diameter of the chest. ABDOMEN: The upper abdomen is clear. There is no subphrenic gas. BONES AND SOFT TISSUES: No bone or soft tissue abnormalities are noted. OTHER: None. IMPRESSION: NO ACTIVE CARDIOPULMONARY DISEASE. R0
== END 2018-03-17 22:41 | disposition home or self-care (01) ==
LOC: ED 18:07
DX: R07.89 Other chest pain (principal); E03.9 Hypothyroidism, unspecified; I10 Essential (primary) hypertension; R00.1 Bradycardia, unspecified; Z95.5 Presence of coronary angioplasty implant and graft; F17.210 Nicotine dependence, cigarettes, uncomplicated
CPT/HCPCS: 36415; 71046; 80053; 83735; 83880; 84443; 84484; 85025; 85610; 85730; 93005; 99283